=== PATIENT | female | born 1945 | race Caucasian/White ===

== ENCOUNTER 2022-05-21 10:46 | Outpatient (CLI) | payer MEDICARE, SELFPAY ==
--- OUTSIDE RECORDS SUMMARY | 2022-05-21 07:52 | XMS_ITS | Encounter Summary ---
:[address] [facility] Address [address] [place] [address] Care Team Providers Name Role Phone Unavailable Primary Care Provider Unavailable Encounter Details Date Type Department Care Team Description 02/19/2016 Hospital Encounter HX NO MAPPING Social History Tobacco Use Types Packs/Day Years Used Date Smoking Tobacco: Never Assessed Sex Assigned at Date Recorded Not on file documented as of this encounter Medications at Time of Discharge Medication Sig Dispensed Refills Start Date End Date co-enzyme Q-10 (CO Q-10) Take 1 capsule by 0 12/2015 100 mg capsule mouth daily. lisinopril Take 1 tablet by mouth 0 01/01/2016 (PRINIVIL,ZESTRIL) 10 mg daily. tablet loratadine 10 mg capsule Take 1 capsule by 0 01/25 mouth as needed. magnesium 250 mg tablet Take 1 tablet by mouth 0 01/01/2016 daily. metFORMIN (GLUCOPHAGE) Take 1 tablet by mouth 0 0 01/01/2016 1,000 mg tablet 2 (two) times a day. omega-3 fatty acids/fish Take 1,200 mg by mouth 0 01/01/2016 oil (OMEGA 3 FISH OIL daily. ORAL) documented as of this encounter Plan of Treatment Not on filedocumented as of this encounter Visit Diagnoses Not on filedocumented in this encounter
--- OUTSIDE RECORDS SUMMARY | 2022-05-21 07:52 | XMS_ITS | Encounter Summary ---
:1945 Author Organization [facility] Address [address] [place] [address] Care Team Providers Name Role Phone Unavailable Primary Care Provider Unavailable Encounter Details Date Type Department Care Team Description 03/24/2018 Ancillary Procedure Department of Dermatology Social History Tobacco Use Types Packs/Day Years Used Date Smoking Tobacco: Never Smokeless Tobacco: Never Sex Assigned at Date Recorded Not on file documented as of this encounter Plan of Treatment Not on filedocumented as of this encounter Procedures Procedure Name Priority Date/Time Associated Comments Diagnosis DERMATOLOGY IMAGE Routine 03/24/2018 4:44 PM Resu lts for this EXAM CDT procedure are i n the results section. documented in this encounter Results DERMATOLOGY IMAGE EXAM (03/24/2018 4:44 PM CDT) Specimen (Source) Anatomical Collection Method Collection Time Re ceived Time Location / / Volume Laterality 03/24/2018 4:42 PM CDT Narrative [facility] - 03/24/2018 4:44 PM CDT This order has been created and auto-finalized to support the import of images acquired without order. The clini saji documentation to support these images can be found on the encounter mona t produced images. Provider Not In System IMG NON RAD IMAGING PROCEDUR ES Performing Organization Address City/State/ZIP Code Phon e Number [facility] NA documented in this encounter Visit Diagnoses Not on filedocumented in this encounter
--- OUTSIDE RECORDS SUMMARY | 2022-05-21 07:52 | XMS_ITS | Encounter Summary ---
:1945 Author Organization [facility] Address [address] [place] [address] Care Team Providers Name Role Phone Unavailable Primary Care Provider Unavailable Encounter Details Date Type Department Care Team Description 12/11/2020 Clinical Communication Department of Corey Sal, Dermatology in [place], [place] [address] [facility] [address] [place] [phone] [phone] Social History Tobacco Use Types Packs/Day Years Used Date Smoking Tobacco: Never Smokeless Tobacco: Never Sex Assigned at Date Recorded Not on file documented as of this encounter Miscellaneous Notes Telephone Encounter - Edilberto Quintero LLaurenP.N. - 12/13/2020 9:39 AM CDT Spoke to patient on phone and confirmed 12/19 appointment at 11:15 Telephone Encounter - Helen Horne - 12/11/2020 3:21 PM CDT SYMPTOM ADVICE What phone number can I reach you at? [phone] New Symptom and duration of symptom: Eczema and Psoriasis Additional information: Pt called, stated her eczema and psoriasis is getting worse on her leg. She is requesting to see Dr Sal sooner than 03/26/21. Pt declined first available appt. Please check and call her back. Routing: - transfer to hand bunch maker line if new or worsening symptoms - team swimming pool attendant for continued symptoms - VERIFICATION ENGINEER pool for chronic issue or medication refill/question documented in this encounter Plan of Treatment Not on filedocumented as of this encounter Visit Diagnoses Not on filedocumented in this encounter
--- OUTSIDE RECORDS SUMMARY | 2022-05-21 07:52 | XMS_ITS | Encounter Summary ---
:1945 Author Organization [facility] Address [address] [place] [id number] Care Team Providers Name Role Phone Unavailable Primary Care Provider Unavailable Encounter Details Date Type Department Care Team Description 12/19/2020 Ancillary Procedure Department of Dermatology Social History Tobacco Use Types Packs/Day Years Used Date Smoking Tobacco: Never Smokeless Tobacco: Never Sex Assigned at Date Recorded Not on file documented as of this encounter Plan of Treatment Not on filedocumented as of this encounter Procedures Procedure Name Priority Date/Time Associated Comments Diagnosis DERMATOLOGY IMAGE Routine 12/19/2020 11:30 Result s for this EXAM AM CDT procedure are i n the results section. documented in this encounter Results Legs-Dermatology Image Exam (12/19/2020 11:30 AM CDT) Specimen (Source) Anatomical Collection Method Collection Time Re ceived Time Location / / Volume Laterality 12/19/2020 11:30 AM CDT Narrative [facility] - 12/19/2020 11:34 AM CDT This order has been created and [...]
--- OUTSIDE RECORDS SUMMARY | 2022-05-21 07:52 | XMS_ITS | Encounter Summary ---
:1945 Author Organization [facility] Address [address] [place] [address] Care Team Providers Name Role Phone Unavailable Primary Care Provider Unavailable Encounter Details Date Type Department Care Team Description 04/29/2016 Hospital Encounter HX NO MAPPING Social History Tobacco Use Types Packs/Day Years Used Date Smoking Tobacco: Never Assessed Sex Assigned at Date Recorded Not on file documented as of this encounter Last Filed Vital Signs Vital Sign Reading Time Taken Comments Blood Pressure 147/83 04/29/2016 4:30 PM CDT Pulse 90 04/29/2016 4:30 PM CDT Temperature - - Respiratory Rate 18 04/29/2016 4:30 PM CDT Oxygen Saturation - - Inhaled Oxygen Concentration - - Weight 89.5 kg (197 lb 5 oz) 04/29/2016 6:06 AM CDT Height 168 cm (5' 6.14) 04/29/2016 6:06 AM CDT Body Mass Index 31.71 04/29/2016 6:06 AM CDT documented in this encounter Medications at Time of Discharge Medication Sig Dispensed Refills Start Date End Date co-enzyme Q-10 (CO Q-10) Take 1 capsule by 0 06/0 12/2015 100 mg capsule mouth daily. lisinopril Take 1 tablet by mouth 0 01/01/2016 (PRINIVIL,ZESTRIL) 10 mg daily. tablet loratadine 10 mg capsule Take 1 capsule by 0 1 11/2015 mouth as needed. magnesium 250 mg tablet [...]
--- OUTSIDE RECORDS SUMMARY | 2022-05-21 07:52 | XMS_ITS | Clinical Summary ---
:1945 Author Organization [facility] Address [address] [place] [address] Care Team Providers Name Role Phone Unavailable Primary Care Provider Unavailable Source Comments Patient records contain information from all sites at [facility]. For routine questions regarding patient records, call [phone] during business hours, M-F 8:00 AM - 5:00 PM Central Time. Record requests for emergency care only can be directed to [phone] at any time.[facility] Allergies Active Allergy Reactions Severity Noted Date Comments Bacitracin Rash 09/02/2018 Codeine Hallucinations 01/01/2016 Hydrocodone-Acetaminop Nausea Only 01/01/2016 hen Iodinated Contrast Hives 01/02/2016 IV Dye Media Meperidine Nausea Only 01/01/2016 Methadone Nausea Only 01/01/2016 Dizziness Miconazole Nitrate Hives 01/01/2016 Morphine Nausea Only 01/01/2016 Oxycodone-Acetaminophe Nausea Only 01/01/2016 n Pollen Extracts Other (see comments) 01/01/2016 Enoc estion, sneezing and coughing Sulfa (Sulfonamide Nausea And Vomiting 01/01/2016 Antibiotics) Tree And Shrub Pollen Other (see comments) 01/02/2016 [place] trees-congestio n, sneezing and co ughing Medications Medication Sig Dispensed Refills Start Date End Date Status co-enzyme Q-10 (CO Take 1 capsule by 0 01/01/2016 Active Q-10) 100 mg capsule mouth daily. lisinopril Take 1 tablet by 0 01/01/2016 A ctive (PRINIVIL,ZESTRIL) 10 mouth daily. mg tablet loratadine 10 mg Take 1 capsule by 0 02/09/2016 Active capsule mouth as needed. magnesium 250 mg tablet Take 1 tablet by 0 6 Active mouth daily. metFORMIN (GLUCOPHAGE) Take 1 tablet by 0 01/01/2016 Active 1,000 mg tablet mouth 2 (two) times a day. omega-3 fatty Take 1,200 mg by 0 01/01/2016 Active acids/fish oil (OMEGA 3 mouth daily. FISH OIL ORAL) cholecalciferol Take 2,000 Units 0 Active (VITAMIN D3) 2,000 Unit by mouth daily. tablet atorvastatin (LIPITOR) Take 20 mg by 0 Active 20 mg tablet mouth daily. glimepiride (AMARYL) 1 Take 2 mg by 0 Active mg tablet mouth daily with breakfast. mometasone (ELOCON) 0.1 Apply sparingly 45 g 0 02/05/2021 Active % ointment to rash on legs once daily for for 1 week, stop for 1 week, then resume for 1 more week Additional Information Patient taking differently: Apply sparingly to rash on legs once daily for for 1 week, stop for 1 week, then resume for 1 more week when needed, Reported on 02/19/2021 Active Problems Problem Noted Date Keratoderma Acquired 06/02/2018 Hyperlipidemia 04/18/2016 Social History Tobacco Use Types Packs/Day Years Used Date Smoking Tobacco: Never Smokeless Tobacco: Never Sex Assigned at Date Recorded Not on file Last Filed Vital Signs Vital Sign Reading Time Taken Comments Blood Pressure 147/83 04/29/2016 4:30 PM CDT Pulse 90 04/29/2016 4:30 PM CDT Temperature - - Respiratory Rate 18 04/29/2016 4:30 PM CDT Oxygen Saturation - - Inhaled Oxygen - - Concentration Weight 90 kg (198 lb 6.6 04/29/2016 7:59 AM Vital si gn result oz) CDT from CD. Height 169.3 cm (5' 6.65) 04/29/2016 7:59 AM Vital sign result CDT from [facility]. Body Mass Index 31.4 04/29/2016 7:59 AM CDT Plan of Treatment Health Maintenance Due Date Last Done Comments Bone Density Scan (Osteoporosis 1945 Screen) CT Colonography 1945 Cologuard 1945 FIT 1945 Hepatitis C Screening 1945 DTaP,Tdap,and Td Vaccines (1 - 04/09/2012 04/08/2012, 04/08, Tdap) 02/14/2003 Mammogram 05/29/2016 05/29/2015 (Performed elsewhere) Creatinine Level 04/18/2017 04/18/2016 Potassium Level 04/18/2017 04/18/2016 Sodium Level 04/18/2017 04/18/2016 Colonoscopy 07/28/2017 07/28/2007 (Performed elsewhere) Colorectal Cancer Screening 07/28/2017 Fasting Glucose for Diabetes 04/29/2019 04/29/2016, 016, Screening 04/29/2016, Additional history exists Lipid (Cholesterol) Screening 04/18/2021 04/18/2016, 2014 (Performed elsewhere) Depression Screening (Annual 07/28/2021 PHQ-2) Fall Risk Screen (Annual) 07/28/2021 Pneumococcal vaccine (65+ years) Completed 05/23/2017, 01/2017, 09/13/2003 Zoster Vaccines Completed 07/13/2020, 05/01/2020, 06/29/2014 COVID-19 Vaccine Completed 04/19/2022, 10/29/2021, 04/24/2021, Additional history exists Influenza Vaccine Completed 04/19/2022, 05/03/2021, 05/12/2019, Additional history exists Medical Devices Implanted Type Area Columnist/Commentator Device Shelf Model / Identifier Expiration Serial / Date Lot Conversions - Default Historical Implant Device Hardware e.g. Neck Implanted: 01/01/2016 (Quantity not on file) pins/screws/r ods Description: Body Location - Neck Mid. D evice Status Text - Hardware. Insurance Payer Benefit Plan / Subscriber ID Effective Phone Address T ype Group Dates MEDICARE MEDICARE A AND [id number] 2012-Prese [phone] [place] [address] MEDICA MEDICA PRIME [id number] 2017-Prese [phone] [address] [employer] [address] [place] [address] Advance Directives For more information, please contact: [phone] Documents on File Type Date Recorded Patient Immigration Case Manager Explanati on Advance Directives 01/01/2016 12:00 AM Legacy docu ment. See document viewer.
--- OUTSIDE RECORDS SUMMARY | 2022-05-21 07:52 | XMS_ITS | Encounter Summary ---
:1945 Author Organization [facility] Address [address] [place] [address] Care Team Providers Name Role Phone Unavailable Primary Care Provider Unavailable Reason for Referral Outpatient (Routine) - Closed Specialty Diagnoses / Procedures Referred By Contact Refer red To Contact Dermatology Corey Sal M.D . [facility] Region [address] [place], [place] [address] Referral ID Status Reason Start Date Expiration Date Visits Requ ested Visits Authorized [id number] Closed 03/24/2018 03/24/2019 1 1 Scheduling Instructions Recheck skin rash on FridayJune 02 for 30 min appointment 3:00-330pm Reason for Visit Reason Comments Skin Problem 3 month follow up for Kerato derma and stasis dermatitis Appointment Request (Routine) - Closed Specialty Diagnoses / Procedures Referred By Contact Refer red To Contact Dermatology Referral ID Status Reason Start Date Expiration Date Visits Requ ested Visits Authorized [id number] Closed 12/16/2017 06/14/2018 1 Encounter Details Date Type Department Care Team Description 03/24/2018 Office Visit Department of Corey Sal, Keratoderm a Acquired (Primary Dx); Dermatology in [place] Stasis Dermatitis Lower Extremity Bilate [place], [place] [address] [phone] [phone] Social History Tobacco Use Types Packs/Day Years Used Date Smoking Tobacco: Never Smokeless Tobacco: Never Sex Assigned at Date Recorded Not on file documented as of this encounter Progress Notes Corey Sal M.D. - 03/24/2018 3:30 PM CDT CHIEF COMPLAINT Recheck keratoderma involving her feet HISTORY OF THE PRESENT ILLNESS Annie Carter is a pleasant 73 y.o. female who follows up for her keratoderma involving her feetand dermatitis involving her legs. The patient used the mometasone for her leg dermatitis as instructed with two weeks on, one week off and two weeks on. She stopped using the mometasone completely about one month ago. The bottoms of her feet appear to be improved with the Retin-A however, the skin onher toes is starting the crack and split. She stopped using the Retin-a about two to three weeks agobecause when the Retin-A would enter the cracks in the skin it would burn so she stopped using it. She tried using urea again last week but stopped using it because it stung when she applied it and it entered the fissures in her skin. She has been using butter balm for the last few weeks because it isthe only thing she has found that doesn't burn or sting when she applies it. The soles of her feet are much better currently. She is able to walk without cracking of the skin and bleeding. Her toes however, have worsened with increased dry skin and formation of fissures. Previous biopsy from a psoriasiform dermatitic rash on her thighs favored dermatitis but PRP could not be excluded however clinically it did not look like PRP. The patient had an annual physical exam in January 2018 at our request as acquired keratoderma can sometimes be associated with aerodigestive malignancies.. Her primary care glo abrams did not recommend any further imaging at that time. The patient denies any dysphagia, fever, night sweats, weight loss or other complaints. PAST MEDICAL HISTORY Keratoderma involving feet PHYSICAL EXAM General: Awake, alert, in no acute distress, and with appropriate affect. Skin: Examination of the left plantar foot reveals thickened keratoderma involving the tips of the toes and heel area, and distal foot near the big toe but overall it appears better compared to previous. Examination of the right plantar foot reveals thickened keratoderma involving all five toes with afissure involving the right big toe and then some keratoderma involving the heel and distal foot near the big toe but overall improved as well compared to previous. No vesicles or pustules noted on exam. Examination of the legs reveals dermatitic rash left jasso greater than right jasso with some dilated blood vessels and blanchable erythema on the left anterior jasso. IMPRESSION AND PLAN #1 Feet: Acquired keratoderma Overall improved compared to last winter/spring but slight worsening on the toes since last visit and since stopping the urea. For the left foot, will try restarting the urea once a day just to the thick areas on the heels and the toes if tolerated can use the Dovonex once a day as well. If it is not tolerated, we will use Dovonex ointment twice a day. On the right foot we will try to urea once a dayto the thickened area on the heel and toes, avoiding the fissure, as tolerated. If tolerated, she should add Dovonex once a day. If it is not tolerated, we will use Dovonex ointment twice a day. To theright big toe fissure she may use Krazy glue. Dovonex ointment was reordered today to be used as need ed above. Recommended Vaniply at night. #2 Legs: Stasis dermatitis Leg rash looks like stasis dermatitis. Prior biopsy from thigh showed dermatitis but could not rule out PRP however clinically this does not fit. Will switch to mometasone ointment once a day two weekson, one week off, two weeks on then stop. I reviewed proper application with the patient. Return in 2 months for a recheck. PATIENT EDUCATION Ready to learn. No apparent learning barriers were identified. Learning preferences include listening. Explained diagnosis and treatment plan; patient/guardian of patient expressed understanding of thecontent. By signing my name below, I, Favio Quevedo, attest that this documentation has been prepared underthe direction and in the presence of Corey Sal M.D.. Electronically Signed: fabiola Acosta. 03/24/2018. 4:17 PM . Corey Harvey M.D., personally performed the services described in this documentation. All medical record entries made by the scribe were at my direction and in my presence. I have reviewed the chart and discharge instructions (if applicable) and agree that the record reflects my personal performance and is accurate and complete. Corey Sal M.D. . 03/24/2018. 4:59 PM. documented in this encounter Plan of Treatment Scheduled Referrals Name Type Priority Associated Order Schedule Diagnoses Dermatology office Outpatient Referral Routine Ex pected: visit (clinic) 06/02/2018 (Approximate), Expires: 03/24/2021 documented as of this encounter Visit Diagnoses Diagnosis Keratoderma Acquired - Primary Stasis Dermatitis Lower Extremity Bilate ral documented in this encounter
--- OUTSIDE RECORDS SUMMARY | 2022-05-21 07:52 | XMS_ITS | Encounter Summary ---
:1945 Author Organization [facility] Address [address] [place] [address] Care Team Providers Name Role Phone Unavailable Primary Care Provider Unavailable Encounter Details Date Type Department Care Team Description 04/17/2016 Hospital Encounter HX NO MAPPING Social History [...]
--- OUTSIDE RECORDS SUMMARY | 2022-05-21 07:52 | XMS_ITS | Encounter Summary ---
:1945 Author Organization [facility] Address [address] [place] [address] Care Team Providers Name Role Phone Unavailable Primary Care Provider Unavailable Reason for Visit Reason Comments Med Refill Encounter Details Date Type Department Care Team Description 04/01/2018 Refill Department of Dermatology in Corey Kirby M.D. Med Refill [facility] [place] [address] [address] [place], [place] [address] [phone] Social History Tobacco Use Types Packs/Day Years Used Date Smoking Tobacco: Never Smokeless Tobacco: Never Sex Assigned at Date Recorded Not on file documented as of this encounter Miscellaneous Notes Telephone Encounter - Asuncion Valencia R.N. - 04/02/2018 2:32 PM CDT Portal message sent to patient alerting her that a request for Prior Authorization on the MometasoneOintment has been sent to the Prior Authorization Department. Telephone Encounter - Malia Mcgrath L.P.N. - 04/02/2018 11:35 AM CDT I submitted a PA request. Telephone Encounter - Neha Chowdhury - 04/01/2018 11:37 AM CDT Annie is checking the status of her Prior Authorization that is needed regarding the Ointment Dr. Sal ordered for her feet. This Rx can be sent to [facility] in [place]. We may contact Annie at [phone] and she states we may leave a detailed message, should we receive her voicemail. documented in this encounter Plan of Treatment Not on filedocumented as of this encounter Visit Diagnoses Not on filedocumented in this encounter
--- OUTSIDE RECORDS SUMMARY | 2022-05-21 07:52 | XMS_ITS | Encounter Summary ---
:1945 Author Organization [facility] Address [address] [place] [address] Care Team Providers Name Role Phone Unavailable Primary Care Provider Unavailable Reason for Referral Outpatient (Routine) - Closed Specialty Diagnoses / Procedures Referred By Contact Refer red To Contact Dermatology Corey Sal M.D . [facility] [address] [place] [phone] Referral ID Status Reason Start Date Expiration Date Visits Requ ested Visits Authorized [id number] Closed 02/19/2021 02/19/2022 1 1 Scheduling Instructions Recheck stasis dermatitis, hyperkeratosi s of feet, and skin cancer screening exam in 3 months Reason for Visit Reason Comments Follow-up rash on legs Outpatient (Routine) - Closed Specialty Diagnoses / Procedures Referred By Contact Refer brian To Contact Dermatology Corey Sal M.D . [facility] Region [address] [place] [phone] Referral ID Status Reason Start Date Expiration Date Visits Requ ested Visits Authorized [id number] Closed 12/19/2020 12/19/2021 1 1 Encounter Details Date Type Department Care Team Description 02/19/2021 Office Visit Department of Corey Sal Dermat itis Lower Extremity Bilateral (Primary Dx); Dermatology in [place] Nam M.D. [place] [id number] Social History Tobacco Use Types Packs/Day Years Used Date Smoking Tobacco: Never Smokeless Tobacco: Never Sex Assigned at Date Recorded Not on file documented as of this encounter Progress Notes Corey Sal M.D. - 02/19/2021 2:30 PM CDT SUBJECTIVE CHIEF COMPLAINT / REASON FOR VISIT Recheck hyperkeratosis Recheck stasis dermatitis HISTORY OF PRESENT ILLNESS Annei Carter is a pleasant 75 y.o. female who follows up for recheck hyperkeratosis involving the plantar feet and a recheck of stasis dermatitis involving the lower legs bilaterally. The patient was last seen by me in Dermatology clinic on 12/19/20 and at that time we felt her hyperkeratosis was m ild and the rash involving the lower legs was compatible with stasis dermatitis. 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 During her most recent visit on 06/02/18, the keratoderma had markedly improved. I recommended restarting urea 20% cream one to two times daily and continuing Vaniply ointment twice daily.??During her follow up visit on 10/05/18, she reported??that the keratoderma has continued to significantly improve and was almost entirely resolved with application of the urea cream twice daily. She denied??irritation or pain with walking. I recommended decreasing the urea??20% cream??from twice??to once daily to the plantar feet and toes. She also continued??the Vaniply ointment twice daily. Today,??she reports that the keratoderma has resolved. She decreased the urea to once daily as directed, then stopped it entirely about one month ago and has not needed to restart.? In addition, the patient has a history of stasis dermatitis involving her lower legs??previously treated with mometasone ointment. During the last visit??on 10/05/18, the patient had concern for a mild flare involving the left distal lower leg.??I recommended resuming mometasone 0.1% ointment once daily to both entire legs 3 days per week for 1 week.??After this, I instructed her to apply the mometasone??to the eczematous plaque involving the left distal leg every other day for one??further week??week.??Today, the patient reports that she applied the mometasone as directed during this flare until itresolved. However, she does have concern for a new flare of itching and mild erythema involving her lower legs after a recent trip to [place]. She has been applying CeraVe moisturizer at least twice daily, which helps relieve the itching.? During her most recent visit on 02/23/2019, the keratoderma involving the feet had markedly improved and we asked her to only use the 20% urea cream every other day as needed and apply Vaniply ointment twice daily. For the stasis dermatitis involving the legs, that had also improved and we asked her touse Sarna lotion twice daily and for flares of dermatitis she would resume mometasone 0.1% ointment once daily up to a few days at a time. ? On her visit on 12/19/20The keratoderma has been doing well on the heels and she has not required Urea and has just been using Vaniply ointment and Eucerin and uses one or the other twice daily. With regards to the dermatitis involving ther legs she had a recent flare which started 2-3 months ago with peeling skin, a lot of itching. She denies blistering. Prior to the flare there were no identifiable aggravating factors. Treatments have consisted of Vaniply ointment twice daily, Eucerin when itchy and she did not treat with mometasone ointment as she ran out of the ointment and has not used any other steroid creams. More recently she was seen by the dentist for a potential root canal and she was given Clindamycin 300 mg three times daily for two weeks and that was started on 12/11/2020 about one week ago and she feels the rash has improved with the Clindamycin. She feels that her legs are less red and inflamed since starting the antibiotic. She denies any fever or chills. She denies any blisters or erosions in the mouth. She denies any new skin contactants or any new medications other than the Clindamycin. ?? On her most recent visit on 12/19/20 in regards to her hyperkeratosis, we felt it was mild at that time. I explained she may use the Urea 20% cream applied once daily to the thickened areas for one week at a time. Stop for 3-4 days. Resume again for another week. Apply Vaniply twice daily. In regards to her stasis dermatitis, I asked her restart the mometasone ointment once daily for one week. Stop for one week then resume again for 1 week and repeat for a second cycle. I asked her to stop after the second 1 week of treatment with the mometasone ointment and just simply use moisturizer t hereafter. I explained she may continue with Clindamycin antibiotics as prescribed by her dentist. We did discuss the potential of referral to [facility] for patch testing vs potential biopsy but we deferred these treatments at that time especially the biopsy as I would be worried about a poor healing wound in the area. I discussed we may consider referral for patch testing if she gonzalez not improved. Today, in regards to the hyperkeratosis has significantly improved with the application of the urea 20% twice daily. She also feels that the stasis dermatitis involving her lower legs bilaterally has also markedly improved with the mometasone ointment. She has completed two cycles of mometasone ointment daily for 2 weeks followed by 1 week off and the last treatment was approximately 4 weeks ago and has not had any flares since. MEDICAL HISTORY Keratoderma involving feet Stasis dermatitis involving legs OBJECTIVE PHYSICAL EXAMINATION General: Awake, alert, in no acute distress, and with appropriate affect. Skin: Limited skin exam done today. Examination of the right lower leg reveals faint erythematous macules that are markedly improved. Examination of the left lower leg reveals some blanchable erythema and post inflammatory changes andstasis changes but overall markedly improved with the area of involvement being much thinner and less inflamed. Examination of the toes reveals some mild hyperkeratosis involving the left fifth toe. Examination of the right foot reveals some hyperkeratosis involving the first four toes. Webspaces are normal. ASSESSMENT / PLAN #1 Plantar feet: Hyperkeratosis, improving I have asked her to continue with 20% Urea cream applied twice daily. Apply Vaniply twice daily at another time than the Urea cream.Follow up in 4 months for a recheck and a full skin check. #2 Lower legs bilaterally: Stasis dermatitis, markedly improved I have asked her to stop mometasone ointment at this time. If reoccurs, she may apply once daily for one week at at time. Stop for one week, resume again as needed. She may apply Vaniply twice daily to the legs as needed. Follow up in 4 months for a recheck and a full skin check. PATIENT EDUCATION: Ready to learn. No apparent learning barriers were identified. Learning preferences include listening. Explained diagnosis and treatment plan; patient/guardian of patient expressed understanding of thecontent. By signing my name below, I, Lisa Westfall, attest that this documentation has been prepared underthe direction and in the presence of Corey Sal M.D. Electronically Signed: fabiola Kendrick. I, Corey Sal M.D., personally performed the services described in this documentation. All medical record entries made by the scribe were at my direction and in my presence. I have reviewed the chart and discharge instructions (if applicable) and agree that the record reflects my personal performance and is accurate and complete. Corey Sal M.D. documented in this encounter Plan of Treatment Scheduled Referrals Name Type Priority Associated Order Schedule Diagnoses Dermatology office Outpatient Referral Routine Ex pected: visit (clinic) 05/22/2021 (Approximate), Expires: 02/20/2024 documented as of this encounter Visit Diagnoses Diagnosis Stasis Dermatitis Lower Extremity Bilate ral - Primary Hyperkeratosis documented in this encounter
--- OUTSIDE RECORDS SUMMARY | 2022-05-21 07:52 | XMS_ITS | Encounter Summary ---
:1945 Author Organization [facility] Address [address] [place] [address] Care Team Providers Name Role Phone Unavailable [...] Associated Comments Diagnosis DERMATOLOGY IMAGE Routine 03/24/2018 4:45 PM Resu lts for this EXAM CDT procedure are i n the results section. documented in this encounter Results DERMATOLOGY IMAGE EXAM (03/24/2018 4:45 PM CDT) Specimen (Source) Anatomical Collection Method Collection Time Re ceived Time Location / / Volume Laterality 03/24/2018 4:43 PM CDT Narrative [facility] - 03/24/2018 4:45 PM CDT This order has been created [...]
--- OUTSIDE RECORDS SUMMARY | 2022-05-21 07:52 | XMS_ITS | Encounter Summary ---
:[address] [facility] Address [address] [place] [address] Care Team Providers Name Role Phone Unavailable Primary Care Provider Unavailable Reason for Referral Outpatient (Routine) - Closed Specialty Diagnoses / Procedures Referred By Contact Refer red To Contact Dermatology Corey Sal M.D . [facility] Region [address] [place] [phone] Referral ID Status Reason Start Date Expiration Date Visits Requ ested Visits Authorized [id number] Closed 10/05/2018 10/05/2019 1 1 Scheduling Instructions Recheck carotid derma involving feet , s tasis dermatitis, and skin cancer screening exam in 3-4 months. 30 min appointment Reason for Visit Reason Comments Follow-up Appointment Request (Routine) - Closed Specialty Diagnoses / Procedures Referred By Contact Refer red To Contact Dermatology Referral ID Status Reason Start Date Expiration Date Visits Requ ested Visits Authorized [id number] Closed 06/02/2018 06/02/2019 1 Encounter Details Date Type Department Care Team Description 10/05/2018 Office Visit Department of Corey Sal, Keratoderm a Acquired (Primary Dx); Dermatology in [place] Stasis Dermatitis Lower Extremity Bilate [place], [place] [address] [phone] Social History Tobacco Use Types Packs/Day Years Used Date Smoking Tobacco: Never Smokeless Tobacco: Never Sex Assigned at Date Recorded Not on file documented as of this encounter Progress Notes Corey Sal M.D. - 10/05/2018 2:00 PM CDT CHIEF COMPLAINT Recheck keratoderma involving feet Recheck of stasis dermatitis involving lower legs HISTORY OF THE PRESENT ILLNESS Annie Carter is a pleasant 73 y.o. female who follows up for keratoderma involving her feet andstasis dermatitis involving her legs. The patient has a history of severe acquired keratoderma sinceJuly 2017 which we have been closely following here and previously in [place]. During her most recent visit on 06/02/18, the keratoderma had markedly improved. I recommended restarting urea 20% cream one to two times daily and continuing Vaniply ointment twice daily. Today, she reports that the keratoderma has continued to significantly improve and is almost entirely resolved with application of the urea cream twice daily. She denies irritation or pain with walking. In addition, the patient has a history of stasis dermatitis involving her lower legs. During the last visit I had recommended resuming mometasone 0.1% ointment once daily for two weeks, stopping for one week, then resuming for two more weeks for flares. The patient applied the mometasone as directed during a flare and it resolved. She has not applied the mometasone for a few months, but notes that a mild flare has been developing recently. PAST MEDICAL HISTORY Keratoderma involving feet Stasis dermatitis involving legs PHYSICAL EXAM General: Awake, alert, in no acute distress, and with appropriate affect. Skin: Examination of the plantar feet reveals mild thickening involving the left lateral sole of thefoot extending to the heel, as well as similar changes to the right lateral foot and heel. There is mild thickening of the plantar aspects of toes. Examination of the right lower leg reveals minimal dermatitis and dry skin. Examination of the left distal lower leg reveals an eczematous patch with mildscaling and some blanchable erythema. IMPRESSION AND PLAN #1 Feet: Acquired keratoderma, markedly improved The patient's keratoderma has continued to significantly improve and it has improved. I recommended decreasing the urea 20% cream from twice to once daily to the plantar feet and toes. She will also continue the Vaniply ointment twice daily. Follow up in 3-4 months or earlier if needed. #2 Legs: Stasis dermatitis The patient's stasis dermatitis has also improved, although there is a focal area involving the leftdistal lower leg. I recommended applying mometasone 0.1% ointment to both entire legs once daily forfor one week three days per week. After this, she will continue to apply the mometasone only to the eczematous plaque involving the left distal leg every other day for one further week week. The patient will continue to apply moisturizer daily. Follow up in 3-4 months or earlier if needed. PATIENT EDUCATION Ready to learn. No apparent learning barriers were identified. Learning preferences include listening. Explained diagnosis and treatment plan; patient/guardian of patient expressed understanding of thecontent. By signing my name below, I, Adriana Cutler, attest that this documentation has been prepared under thedirection and in the presence of Corey Sal M.D. Electronically Signed: fabiola Doherty. 10/05/2018. 2:26 PM . ICorey M.D., personally performed the services described in this documentation. All medical record entries made by the scribe were at my direction and in my presence. I have reviewed the chart and discharge instructions (if applicable) and agree that the record reflects my personal performance and is accurate and complete. Corey Sal M.D. . 10/05/2018. 3:30 PM. documented in this encounter Plan of Treatment Scheduled Referrals Name Type Priority Associated Order Schedule Diagnoses Dermatology office Outpatient Referral Routine Ex pected: visit (clinic) 10/05/2018 (Approximate), Expires: 10/05/2021 documented as of this encounter Visit Diagnoses Diagnosis Keratoderma Acquired - Primary Stasis Dermatitis Lower Extremity Bilate ral documented in this encounter
--- OUTSIDE RECORDS SUMMARY | 2022-05-21 07:52 | XMS_ITS | Encounter Summary ---
:1945 Author Organization [facility] Address [address] [place] [address] Care Team Providers Name Role Phone Unavailable Primary Care Provider Unavailable Reason for Visit Reason Comments Med Refill Encounter Details Date Type Department Care Team Description 02/02/2021 Refill Department of Dermatology in Corey Kirby M.D. Med Refill [facility] [address] [phone] [place], [place] [address] [phone] Social History Tobacco Use Types Packs/Day Years Used Date Smoking Tobacco: Never Smokeless Tobacco: Never Sex Assigned at Date Recorded Not on file documented as of this encounter Miscellaneous Notes Telephone Encounter - Lynne Gabriel - 02/02/2021 12:[address] Sal is away. If appropriate, please forward to covering physician. documented in this encounter Plan of Treatment Not on filedocumented as of this encounter Visit Diagnoses Not on filedocumented in this encounter
--- OUTSIDE RECORDS SUMMARY | 2022-05-21 07:52 | XMS_ITS | Encounter Summary ---
:1945 Author Organization [facility] Address [address] [place] [address] Care Team Providers Name Role Phone Unavailable [...] Associated Comments Diagnosis DERMATOLOGY IMAGE Routine 12/19/2020 11:34 Result s for this EXAM AM CDT procedure are i n the results section. documented in this encounter Results Feet 529-Dermatology Image Exam (12/19/2020 11:34 AM CDT) Specimen (Source) Anatomical Collection Method [...]
--- OUTSIDE RECORDS SUMMARY | 2022-05-21 07:52 | XMS_ITS | Encounter Summary ---
:1945 Author Organization [facility] Address [address] [place] [address] Care Team Providers Name Role Phone Unavailable Primary Care Provider Unavailable Encounter Details Date Type Department Care Team Description 12/16/2017 Ancillary Procedure Department of Dermatology Social History Tobacco Use Types Packs/Day Years Used Date Smoking Tobacco: Never Smokeless Tobacco: Never Sex Assigned at Date Recorded Not on file documented as of this encounter Plan of Treatment Not on filedocumented as of this encounter Procedures Procedure Name Priority Date/Time Associated Comments Diagnosis DERMATOLOGY IMAGE Routine 12/16/2017 3:05 PM Resu lts for this EXAM CDT procedure are i n the results section. documented in this encounter Results DERMATOLOGY IMAGE EXAM (12/16/2017 3:05 PM CDT) Specimen (Source) Anatomical Collection Method Collection Time Re ceived Time Location / / Volume Laterality 12/16/2017 3:05 PM CDT Narrative [facility] - 12/16/2017 3:07 PM CDT This order has been created [...]
--- OUTSIDE RECORDS SUMMARY | 2022-05-21 07:52 | XMS_ITS | Encounter Summary ---
:1945 Author Organization [facility] Address [address] [place] [address] Care Team Providers Name Role Phone Unavailable Primary Care Provider Unavailable Reason for Visit Reason Comments Rash Outpatient (Routine) - Closed Specialty Diagnoses / Procedures Referred By Contact Refer red To Contact Dermatology Corey Sal M.D . [facility] Region [address] [place], [place] [phone] Referral ID Status Reason Start Date Expiration Date Visits Requ ested Visits Authorized [id number] Closed 03/24/2018 03/24/2019 1 1 Encounter Details Date Type Department Care Team Description 06/02/2018 Office Visit Department of Corey Sal Keratoderm a Acquired Dermatology in [facility] (Primary Dx) [place], [place] [address] [place] [phone] Social History Tobacco Use Types Packs/Day Years Used Date Smoking Tobacco: Never Smokeless Tobacco: Never Sex Assigned at Date Recorded Not on file documented as of this encounter Progress Notes Corey Sal M.D. - 06/02/2018 11:00 AM CST CHIEF COMPLAINT Recheck keratoderma involving her feet Recheck of stasis dermatitis involving lower legs HISTORY OF THE PRESENT ILLNESS Annie Carter is a pleasant 73 y.o. female who follows up for her keratoderma involving her feet. I last saw the patient for this on 03/24/18. During this visit, I recommended stopping urea 20% cream but starting Dovonex 0.005% ointment once daily to the thick areas on the heels and the toes and inc reasing to twice daily if tolerated. I also recommended use of Vaniply ointment at night. The patient has not been using Dovonex due to cost concerns. However, she has been using Vaniply ointment twicedaily to the feet. She is very pleased in feels that the keratoderma has improved. I also recommended that she apply Krazy glue to the fissure involving the right big toe. The patientdid not use Krazy glue; however, the fissure resolved spontaneously. During visit on 03/24/18, the patient additionally had concern for dermatitis involving her legs. I recommended using mometasone ointment once daily with two weeks on, one week off and two weeks on, andisreal has followed with this regimen. She stopped using the mometasone completely one month ago. She has also been using CeraVe moisturizing cream once daily. Patient reports significant improvement withuse of the mometasone as well as the CeraVe. Her itchiness has resolved. We had previously discussed that aerodigestive cancers, including those of the esophagus, can occur with keratoderma, but the patient has no systemic symptoms to support any associated malignancy. She has had a GME recently with her primary physician, Dr. Wiggins at [facility], who felt further evaluation was not needed. She is up to date on all malignancy screening. PAST MEDICAL HISTORY Keratoderma involving feet PHYSICAL EXAM General: Awake, alert, in no acute distress, and with appropriate affect. Skin: Examination of the shins reveals scattered, small, erythematous macules. Examination of the lower legs reveals stasis changes and post-inflammatory hyperpigmentation with minimal dermatitis with left lower leg worse than right. Examination of the left foot reveals only minimal keratoderma involving only the left 3rd and 5th plantar toes, as well as small focal areas involving the plantar foot. Examination of the right foot reveals more keratoderma involving several toes, the right medial heel,and the right medial forefoot. IMPRESSION AND PLAN #1 Feet: Acquired keratoderma, markedly improved For the thick areas on the plantar feet and toes, I have recommended restarting urea 20% cream one to two times daily, and tapering as the keratoderma improves. She will continue Vaniply ointment as previously prescribed twice daily. Follow up in 3-4 months or earlier if needed. #2 Legs: Statis dermatitis, markedly improved I recommend the patient continue CeraVe moisturizing cream daily. If the involved area becomes inflamed and itchy, I have instructed the patient to resume mometasone 0.1% ointment two weeks on, one week off, and two weeks on. Potential side effects with overuse of topical steroids discussed and she und erstands. PATIENT EDUCATION Ready to learn. No apparent learning barriers were identified. Learning preferences include listening. Explained diagnosis and treatment plan; patient/guardian of patient expressed understanding of thecontent. By signing my name below, I, Adriana Cutler, attest that this documentation has been prepared under the direction and in the presence of Corey Sal M.D.. Electronically Signed: fabiola Marti. 06/02/2018. 7:53 AM . ICorey M.D., personally performed the services described in this documentation. All medical record entries made by the scribe were at my direction and in my presence. I have reviewed the chart and discharge instructions (if applicable) and agree that the record reflects my personal performance and is accurate and complete. Corey Sal M.D. . 06/02/2018. 12:15 PM. [employer] documented in this encounter Plan of Treatment Not on filedocumented as of this encounter Visit Diagnoses Diagnosis Keratoderma Acquired - Primary documented in this encounter
--- OUTSIDE RECORDS SUMMARY | 2022-05-21 07:52 | XMS_ITS | Encounter Summary ---
:1945 Author Organization [facility] Address [address] [place] [address] Care Team Providers Name Role Phone Unavailable [...] Associated Comments Diagnosis DERMATOLOGY IMAGE Routine 12/16/2017 3:07 PM Resu lts for this EXAM CDT procedure are i n the results section. documented in this encounter Results DERMATOLOGY IMAGE EXAM (12/16/2017 3:07 PM CDT) Specimen (Source) Anatomical Collection Method [...]
--- OUTSIDE RECORDS SUMMARY | 2022-05-21 07:52 | XMS_ITS | Encounter Summary ---
:1945 Author Organization [facility] Address [address] [place] [address] Care Team Providers Name Role Phone Unavailable Primary Care Provider Unavailable Reason for Referral Outpatient (Routine) - Closed Specialty Diagnoses / Procedures Referred By Contact Refer red To Contact Dermatology Corey Sal M.D . [facility] [address] [place] [phone] Referral ID Status Reason Start Date Expiration Date Visits Requ ested Visits Authorized [id number] Closed 02/23/2019 02/23/2020 1 1 Scheduling Instructions Recheck dermatitis and skin cancer scree sena examination in 3 months Reason for Visit Reason Comments Skin Check Outpatient (Routine) - Closed Specialty Diagnoses / Procedures Referred By Contact Refer red To Contact Dermatology Corey Sal M.D . [facility] [address] [place] [address] [phone] Referral ID Status Reason Start Date Expiration Date Visits Requ ested Visits Authorized [id number] Closed 10/05/2018 10/05/2019 1 1 Encounter Details Date Type Department Care Team Description 02/23/2019 Office Visit Department of Corey Sal Keratoderm a Acquired (Primary Dx); Dermatology in [place] Stasis Dermatitis Lower Extremity Bilate [address] [phone] Social History Tobacco Use Types Packs/Day Years Used Date Smoking Tobacco: Never Smokeless Tobacco: Never Sex Assigned at Date Recorded Not on file documented as of this encounter Progress Notes Corey Sal M.D. - 02/23/2019 2:00 PM CDT SUBJECTIVE CHIEF COMPLAINT/REASON FOR VISIT Recheck keratoderma involving feet Recheck of stasis dermatitis involving lower legs HISTORY OF THE PRESENT ILLNESS Annie Carter is a pleasant 73 y.o. female who follows up for keratoderma involving her feet andstasis dermatitis involving her legs. The patient has a history of severe acquired keratoderma sinceJuly 2017 which we have been closely following here and previously in [place]. During her most recent visit on 06/02/18, the keratoderma had markedly improved. I recommended restarting urea 20% cream one to two times daily and continuing Vaniply ointment twice daily. During her follow up visit on 10/05/18, she reported that the keratoderma has continued to significantly improve and was almost entirely resolved with application of the urea cream twice daily. She denied irritation or pain with walking. I recommended decreasing the urea 20% cream from twice to once daily to the plantar feet and toes. She also continued the Vaniply ointment twice daily. Today, she reports that the keratoderma has resolved. She decreased the urea to once daily as directed, then stopped it entirely about one month ago and has not needed to restart. ?? In addition, the patient has a history of stasis dermatitis involving her lower legs previously treated with mometasone ointment. During the last visit on 10/05/18, the patient had concern for a mild flare involving the left distal lower leg. I recommended resuming mometasone 0.1% ointment once daily to both entire legs 3 days per week for 1 week. After this, I instructed her to apply the mometasone to the eczematous plaque involving the left distal leg every other day for one further week week. Today, the patient reports that she applied the mometasone as directed during this flare until it resolved. However, she does have concern for a new flare of itching and mild erythema involving her lower legs after a recent trip to [place]. She has been applying CeraVe moisturizer at least twice daily, which helps relieve the itching. MEDICAL HISTORY Keratoderma involving feet Stasis dermatitis involving legs OBJECTIVE PHYSICAL EXAMINATION General: Awake, alert, in no acute distress, and with appropriate affect. Skin: Examination of the left distal jasso anterior and lateral reveals chronic stasis changes with some seborrheic keratoses and verrucal keratoses involving the upper shins. No evidence for ulcers or vasculitis. Examination of the right medial plantar foot reveals mild dryness. Examination of the right big toe reveals xerosis and fissure and some thickening. ASSESSMENT/PLAN #1 Feet: Acquired keratoderma, markedly improved The patient's keratoderma has continued to significantly improve, and she has not needed to use the urea 20% cream for over one month. On clinical examination today, she has some xerosis, thickening, and fissuring involving the right big toe, so I recommended restarting the urea 20% cream once daily or once every other day as needed until resolved. She will also apply Vaniply ointment twice daily. Follow up for recheck and full skin cancer screening exam in 3 to 4 months. #2 Legs: Stasis dermatitis The patient's stasis dermatitis has also improved, although she does have a mild recent flare involving the lower legs, left greater than right. For itch relief, I recommended applying Sarna lotion twice daily. For flares of dermatitis and itching, she may resume the mometasone 0.1% ointment once daily for up to a few days at a time as needed. Discussed potential side effects with overuse of topical steroids including thinning of the skin and dilation of blood vessels and the patient understands. Follow up for recheck and full skin cancer screening exam in 3 to 4 months or earlier if needed. PATIENT EDUCATION: Ready to learn. No apparent learning barriers were identified. Learning preferences include listening. Explained diagnosis and treatment plan; patient/guardian of patient expressed understanding of thecontent. By signing my name below, Adriana Harvey, attest that this documentation has been prepared under thedirection and in the presence of Corey Sal M.D. Electronically Signed: fabiola Doherty. 02/23/2019. 2:05 PM . Corey Harvey M.D., personally performed the services described in this documentation. All medical record entries made by the scribe were at my direction and in my presence. I have reviewed the chart and discharge instructions (if applicable) and agree that the record reflects my personal performance and is accurate and complete. Corey Sal M.D. . 02/23/2019. 4:08 PM. documented in this encounter Plan of Treatment Scheduled Referrals Name Type Priority Associated Order Schedule Diagnoses Dermatology office Outpatient Referral Routine Ex pected: visit (clinic) 12/19/2020 (Approximate), Expires: 02/23/2022 documented as of this encounter Visit Diagnoses Diagnosis Keratoderma Acquired - Primary Stasis Dermatitis Lower Extremity Bilate ral documented in this encounter
--- OUTSIDE RECORDS SUMMARY | 2022-05-21 07:52 | XMS_ITS | Encounter Summary ---
:1945 Author Organization [facility] Address [address] [place] [address] Care Team Providers Name Role Phone Unavailable [...]
--- OUTSIDE RECORDS SUMMARY | 2022-05-21 07:52 | XMS_ITS | Encounter Summary ---
:1945 Author Organization [facility] Address [address] [place] [address] Care Team Providers Name Role Phone Unavailable Primary Care Provider Unavailable Reason for Referral Outpatient (Routine) - Closed Specialty Diagnoses / Procedures Referred By Contact Refer red To Contact Dermatology Corey Sal M.D . [address] [phone] Referral ID Status Reason Start Date Expiration Date Visits Requ ested Visits Authorized [id number] Closed 12/19/2020 12/19/2021 1 1 Scheduling Instructions Recheck hyperkeratosis and dermatitis.23 0-3pm. 30 minutes Reason for Visit Reason Comments Eczema Outpatient (Routine) - Closed Specialty Diagnoses / Procedures Referred By Contact Refer red To Contact Dermatology Corey Sal M.D . [address] [phone] Referral ID Status Reason Start Date Expiration Date Visits Requ ested Visits Authorized [id number] Closed 02/23/2019 02/23/2020 1 1 Encounter Details Date Type Department Care Team Description 12/19/2020 Office Visit Department of Corey Sal Hyperkeratosi s (Primary Dx); Dermatology in [place] M.D. [address] [phone] Social History Tobacco Use Types Packs/Day Years Used Date Smoking Tobacco: Never Smokeless Tobacco: Never Sex Assigned at Date Recorded Not on file documented as of this encounter Progress Notes Corey Sal M.D. - 12/19/2020 11:15 AM CDT SUBJECTIVE CHIEF COMPLAINT / REASON FOR VISIT History of keratoderma involving the feet History of stasis dermatitis involving the legs HISTORY OF PRESENT ILLNESS Annie Carter is a pleasant 75 y.o. female who follows up for keratoderma and stasis dermatitis.The patient was last seen by me in Dermatology clinic on 02/23/2019 for evaluation of acquired keratoderma involving the feet which we felt was markedly improved and for statis dermatitis involving the legs which we also felt were improved. The patient has a history of severe acquired keratoderma since July 2017 which we have been closely following here and previously in [place]. During her most recent visit on 06/02/18, [...] pain with walking. I recommended decreasing the urea20% cream??from twice??to once daily to the plantar [...] distal leg every other day for one??further week??week. Today, the patient reports that she applied the mometasone as directed during this flare until it resolved. However, she does have concern for a new flare of itching and mild erythema involving her lower legs after a recent trip to [place]. She has been applying CeraVe moisturizer at least twice daily, which helps relieve the itching. During her most recent visit on 02/23/2019, [...] to a few days at a time. Since her last visit in January, the keratoderma has been doing well on the [...] any new medications other than the Clindamycin. MEDICAL HISTORY Keratoderma involving feet Stasis dermatitis involving legs OBJECTIVE PHYSICAL EXAMINATION General: Awake, alert, in no acute distress, and with appropriate affect. Skin: Limited skin exam done today. Examination of the plantar feet reveals some focal areas of hyperkeratosis on the right heel, mid foot, proximal foot, and periungual plantar toes. On the left plantar foot she has minimal focal hyperkeratosis involving the left medial heel area, distal foot, and periungual plantar toes. No pustules. Examination of the left lower jasso area reveals a violaceous to erythematous dermatitic appearing plaque with minimal scale involving the left jasso with the area measuring approximately 14 cm in diameter x 11.5 cm in height. Inferior to this plaque is an eczematous annular plaque that measures 4.5 cm x 3.5 cm. Examination of the right lower jasos reveals a few annular eczematous plaques, the largest of which measures 2.5 cm x 2 cm. She also has an eczematous plaque involving the right dorsal ankle that measures 3.5 x 3.5 cm. No vesicles, blisters, or pustules for either jasso. She has some superficial varicose veins involving the lower legs. Examination of the oral cavity reveals no blisters or erosions. ASSESSMENT / PLAN #1 Plantar feet: Mild hyperkeratosis She can use the Urea 20% cream applied once daily to the thickened areas for one week at a time. Stop for 3-4 days. Resume again for another week. Apply Vaniply twice daily. Follow-up in 2 months. #2 Lower legs bilaterally: Stasis dermatitis The rash is compatible with her history of stasis dermatitis. I would like to restart the mometasoneointment once daily for one week. Stop for one week then resume again for 1 week and repeat for a second cycle. She will stop after the second 1 week of treatment with the mometasone ointment and just simply use moisturizer thereafter. Potential side effects with overuse of topical steroids including atrophy and telangiectasia of the skin discussed and the patient understands no to overuse. Continue with Clindamycin antibiotics as prescribed by her dentist. We did discuss the potential of referral to [place] for patch testing vs potential biopsy but we will defer these treatments at this time especially the biopsy as I would be worried about a poor healing wound in the area. Will consider referral for patch testing if she has not improved with she returns in 2 months. Additionally, I asked her to take a photo of her legs after two cycles have finished. Photographs taken of the legs today. Follow up in 2 months for a recheck. PATIENT EDUCATION: Ready to learn. No apparent learning barriers were identified. Learning preferences include listening. Explained diagnosis and treatment plan; patient/guardian of patient expressed understanding of thecontent. By signing my name below, I, Lisa Westfall, attest that this documentation has been prepared underthe direction and in the presence of Corey Sal M.D. Electronically Signed: fabiola Kendrick. ICorey M.D., personally performed the services described [...] Outpatient Referral Routine Ex pected: visit (clinic) 02/19/2021 (Approximate), Expires: 02/19/2021 documented as of this encounter Visit Diagnoses Diagnosis Hyperkeratosis - Primary Dermatitis documented in this encounter
--- OUTSIDE RECORDS SUMMARY | 2022-05-21 07:52 | XMS_ITS | Encounter Summary ---
:1945 Author Organization [facility] Address [address] [place] [address] Care Team Providers Name Role Phone Unavailable Primary Care Provider Unavailable Encounter Details Date Type Department Care Team Description 04/06/2018 Orders Only [facility] - Eusebio Pierce M.D. [address] , [facility] [address] [place] [phone] [place] [phone] (Wo rk) Social History Tobacco Use Types Packs/Day Years Used Date Smoking Tobacco: Never Smokeless Tobacco: Never Sex Assigned at Date Recorded Not on file documented as of this encounter Plan of Treatment Not on filedocumented as of this encounter Visit Diagnoses Not on filedocumented in this encounter
--- OUTSIDE RECORDS SUMMARY | 2022-05-21 07:52 | XMS_ITS | Clinical Summary ---
:1945 Author Organization [facility] [place] [address] Care Team Providers Name Role Phone Pcp, No Primary Care Provider Unavailable Allergies Active Allergy Reactions Severity Noted Date Comments Bacitracin Rash 09/02/2018 Hydrocodone-Acetaminophen Nausea Only 01/01/2016 Iodinated Contrast Media Hives 01/02/2016 IV Dye Meperidine Nausea Only 01/01/2016 Methadone Nausea Only 01/01/2016 Dizziness Miconazole Nitrate Hives 01/01/2016 Morphine Nausea Only 01/01/2016 Oxycodone-Acetaminophen Nausea Only 01/01/2016 Sulfa (Sulfonamide Antibiotics) Nausea And Vomiting Medications Medication Sig Dispensed Refills Start Date End Date Status multivitamin (MULTIPLE Take 1 tablet by 0 09/02/2018 Active VITAMINS) tablet mouth once daily. metFORMIN (GLUCOPHAGE) Take 1 tablet by 0 01/01/2016 Active 1,000 mg tablet mouth 2 times daily with meals. lisinopril (PRINIVIL; Take 1 tablet by 0 01/01/2016 Active ZESTRIL) 10 mg tablet mouth once daily. glimepiride (AMARYL) 1 Take 1 mg by 0 Active mg tablet mouth once daily with a meal. atorvastatin (LIPITOR) Take 20 mg by 0 Active 20 mg tablet mouth once daily. coenzyme q10 100 mg cap Take 1 capsule by 0 01/01/20 16 Active mouth once daily. magnesium 250 mg tab Take 1 tablet by 0 01/01/2016 Active mouth once daily. pasdy-3-wmf-epa-dpa-fis Take 1,200 mg by 0 6 Active h oil (FISH OIL) mouth once daily. 1,050-1,200 mg cap capsule loratadine 10 mg cap Take 1 capsule by 0 02/09/2016 Active mouth once daily if needed. Active Problems Not on file Social History Tobacco Use Types Packs/Day Years Used Date Never Assessed Sex Assigned at Date Recorded Not on file Obstetrics History Last Filed Vital Signs Vital Sign Reading Time Taken Comments Blood Pressure 141/81 09/02/2018 10:06 AM HOT METAL CHARGER Pulse 82 09/02/2018 10:06 AM HOT METAL CHARGER Temperature - - Respiratory Rate - - Oxygen Saturation 97% 09/02/2018 10:06 AM HOT METAL CHARGER Inhaled Oxygen Concentration - - Weight 95.6 kg (210 lb 12.8 oz) 09/02/2018 10:06 AM HOT METAL CHARGER Height - - Body Mass Index - - Plan of Treatment Health Maintenance Due Date Last Done Comments COVID-19 vaccine series (#1) 1945 Tdap 1958 Depression screening for age 12+ 1959 BMI (ht and wt on same day) for age 18+ 1965 Hepatitis C screening for age 18-79 1965 Tetanus booster 1967 Colonoscopy through age 75 1992 Lipids for age 45-75 1992 Mammogram for age 45-75 1992 Zoster (shingles) series for age 50+ (1 of 2) 1997 DEXA/DXA scan for age 65+ 2012 Medicare Wellness for age 65+ 2012 Pneumococcal series for age 65+ (1 - PCV) 2012 Influenza for age 65+ 03/28/2022 Results Not on filefrom Last 3 Months Insurance Payer Benefit Plan / Subscriber ID Effective Dates Phone Addre ss Type Group MEDICA MR MEDICA PRIME [id number] 2018-Present [address] [address] [employer] [place] , [facility] [id number] Care Teams Prenatal Nurse Relationship Specialty Start Date End Date Pcp, No PCP - General 09/01/18 .
--- OUTSIDE RECORDS SUMMARY | 2022-05-21 07:52 | XMS_ITS | Encounter Summary ---
:1945 Author Organization [facility] Address [address] [place] [address] Care Team Providers Name Role Phone Unavailable Primary Care Provider Unavailable Reason for Visit Reason Comments Eczema Appointment Request (Routine) - Closed Specialty Diagnoses / Procedures Referred By Contact Refer red To Contact Dermatology Referral ID Status Reason Start Date Expiration Date Visits Requ ested Visits Authorized [id number] Closed 11/04/2017 05/03/2018 1 1 Encounter Details Date Type Department Care Team Description 12/16/2017 Office Visit Department of Corey Sal, Arashoderm a Acquired (Primary Dx); Dermatology in [place] Stasis Dermatitis Lower Extremity [place], [place] [address] [phone] Social History Tobacco Use Types Packs/Day Years Used Date Smoking Tobacco: Never Smokeless Tobacco: Never Sex Assigned at Date Recorded Not on file documented as of this encounter Progress Notes Corey Sal M.D. - 12/16/2017 2:00 PM CDT CHIEF COMPLAINT Keratoderma involving plantar feet and stasis dermatitis HISTORY OF THE PRESENT ILLNESS Annie Carter is a pleasant 72 y.o. female who follows up for ongoing treatment and evaluation of keratoderma for the last 6-7 months per previous note being treated with urea 20% twice daily and Htrva-u-gvjuo 0.05% cream at bedtime. After two weeks of the Crgtz-S-ecztz she found she wasn't improving and her skin became irritated so she discontinued this treatment. She continues to use the urea 20% twice daily and CeraVe moisturizer once to twice daily. Recently, after a three mile walk, her feet became cracked and bled. Currently she states her feet feel improved with continued regular application of CeraVe. She denies any rash of her upper body. No one else at home has a rash. She denies anyhistory of dermatitis, eczema or psoriasis. She denies any GI upset, dysphagia, fever, night sweats or fatigue. She was previously diagnosed with stasis dermatitis affecting both legs which was treated with mometasone. We then stopped the mometasone as she had improved and used the CeraVe moisturizer only. During the last few days, her legs seem to have flared up. A few nights ago, she felt that her legs itchedseverely. She didn't notice any significant changes in appearance. PAST MEDICAL HISTORY She denies any history of dermatitis or psoriasis. PHYSICAL EXAM General: Awake, alert, in no acute distress, and with appropriate affect. Skin: Examination of her left plantar foot revealed some mild keratoderma still involving tips of toes but overall 90% improved. Examination of her right foot revealed thicker keratoderma involving tips of toes and some focal areas involving the right mid lateral foot extending to the heel. No blisters, vesicles or pustules. Examination of bilateral lower legs revealed mild to moderate stasis dermatitis with PIH and stasis changes left greater than right leg. Examination of thighs revealed more psoriasiform dermatitic macules with PIH which have improved and were previously biopsied and the diagnosis favoring dermatitis was made. Examination of hands revealed no rashes. Fingernails with no changessuggesting psoriasis. Examination of scalp revealed no changes suggestive of psoriasis. IMPRESSION AND PLAN #1 Plantar aspects of feet: Acquired keratoderma, markedly improved As noted previously, keratoderma can be associated with GI or aerodigestive malignancy. Previous work up included CXR to rule out malignancy. She has no GI symptoms or dysphagia. Complete physical examwith Dr. Ndiaye her primary care physician at [facility] is scheduled for January. This was discussed with the patient. Photograph taken today with patient's verbal consent. The patient was advised to concentrate urea 20% application on the toes of her feet twice daily and involved areas of her right foot once a day until symptoms improve. She can discontinue use of urea on her left foot as rash has markedly improved and there is concern for irritation of her skin. Discussed treatment options w ith the patient including resuming Retin-A cream at bedtime or other stronger retinoids. We elected to simply resume the Retin-A cream 0.05 percent using the supply she already has at home. She is amenable with this plan. Recommended applying Vaniply once or twice daily for her foot fissures. Follow up in 3 months or sooner if needed. #2 Lower legs: Stasis dermatitis, mild flare left leg greater than right leg Photograph taken today with patient's verbal consent. Resume mometasone cream sparingly to involved areas daily for 1-2 weeks then stop. Continue CeraVe thereafter. She may resume the mometasone cream for 1-2 weeks if needed for flares of symptoms. Follow-up in 3 months or earlier if needed. By signing my name below, I, Favio Quevedo, attest that this documentation has been prepared underthe direction and in the presence of Corey Sal M.D.. Electronically Signed: fabiola Acosta. 12/16/2017. 2:22 PM . I, Corey Sal M.D., personally performed the services described in this documentation. All medical record entries made by the scribe were at my direction and in my presence. I have reviewed the chart and discharge instructions (if applicable) and agree that the record reflects my personal performance and is accurate and complete. Corey Sal M.D. . 12/16/2017. 3:46 PM. documented in this encounter Plan of Treatment Not on filedocumented as of this encounter Visit Diagnoses Diagnosis Keratoderma Acquired - Primary Stasis Dermatitis Lower Extremity Bilate ral documented in this encounter
--- OUTSIDE RECORDS SUMMARY | 2022-05-21 07:52 | XMS_ITS | Encounter Summary ---
:1945 Author Organization [facility] Address [address] [place] [address] Care Team Providers Name Role Phone Unavailable [...]
[2022-05-21 10:41] LABS: Albumin* 4.3 g/dL (3.3-5.0); Chloride* 103 mmol/L (96-114)
[2022-05-21 10:42] LABS: Potassium* 4.1 mmol/L (3.6-5.1)
[2022-05-21 10:44] LABS: Alanine Aminotransferase* 31 U/L (4-35); Alkaline Phosphatase* 81 U/L (40-150); Aspartate Amino Transferase* 37 U/L (12-35); Bilirubin Total* 0.7 mg/dL (0.1-1.5); Blood Urea Nitrogen* 13 mg/dL (7-30); Carbon Dioxide* 23 mmol/L (20-32); Cholesterol* 142 mg/dL (90-199); Creatinine* 0.6 mg/dL (0.5-1.5); Estimated Glomerular Filt Rate 94 ml/min; Glucose* 147 mg/dL (60-115); Total Protein* 7.3 g/dL (6.0-8.3); Triglycerides* 131 mg/dL (40-149)
[2022-05-21 10:45] LABS: Calcium* 8.2 mg/dL (8.4-10.6); HDL Cholesterol* 47 mg/dL (>=50); LDL Cholesterol Calculated 69 mg/dL (<100)
[2022-05-21 10:54] LABS: Creatinine Urine 138.9 mg/dL
[2022-05-21 10:58] LABS: Microalbumin Creatinine Ratio 10 mg/g (0-30); Microalbumin Urine 2 mg/dL
[2022-05-21 11:07] LABS: Sodium* 136 mmol/L (135-149)
== END 2022-05-21 10:47 | disposition home or self-care (01) ==
PROVIDERS: PCP Internal Medicine; Visit Provider Internal Medicine
DX: E11.9 Type 2 diabetes mellitus without complications (principal); E78.5 Hyperlipidemia, unspecified; I10 Essential (primary) hypertension; E66.9 Obesity, unspecified
CPT/HCPCS: 80053; 80061; 82043; 82570

== ENCOUNTER 2023-01-20 10:04 | Outpatient (CLI) | payer MEDICARE, SELFPAY ==
--- NOTE | 2023-01-20 10:15 | CRLHL7_ITS ---
For Patients: As a result of the Century Cures Act, medical imaging exams and procedure reports are released immediately into your electronic medical record. You may view this report before your referring provider. If you have questions, please contact your health care provider. BILATERAL SCREENING MAMMOGRAM WITH COMPUTER-AIDED DETECTION AND TOMOSYNTHESIS TECHNIQUE: CC and MLO views were obtained. These mammographic images have been obtained using full-field digital technique. These mammographic images were interpreted with the benefit of computer-aided detection. Breast Tomosynthesis was used in this interpretation. COMPARISON FILM: 01/17/22, 11/21/20, 09/17/19. FINDINGS: There are scattered areas of fibroglandular density IMPRESSION: There is no radiographic evidence for malignancy. ASSESSMENT: BI-RADS Category 1: Negative RECOMMENDATION: Routine screening mammogram in 1 year. A lay language report of this examination will be provided to the patient. Davi Dupree M.D. Diagnostic Radiologist [email or web address] SEAN/Dictated by: Davi Dupree MD @ 01/20/2023 12:36:00 PM (Electronically Signed)
== END 2023-01-20 10:05 | disposition home or self-care (01) ==
PROVIDERS: PCP Internal Medicine; Visit Provider Internal Medicine
DX: Z12.31 Encounter for screening mammogram for malignant neoplasm of breast (principal)
CPT/HCPCS: 77063; 77067

== ENCOUNTER 2023-06-30 08:13 | Outpatient (CLI) | payer MEDICARE, OTHER, SELFPAY | END 2023-06-30 08:14 | disposition home or self-care (01) | LOC: NFLDREF 07-03 05:43 | PROVIDERS: PCP Internal Medicine; Referring Provider Internal Medicine; Visit Provider Internal Medicine | DX: E11.9 Type 2 diabetes mellitus without complications (principal) | CPT/HCPCS: 80053; 80061; 82043; 82570 ==

== ENCOUNTER 2024-01-22 12:54 | Outpatient (CLI) | payer MEDICARE, OTHER, SELFPAY ==
--- NOTE | 2024-01-22 13:00 | CRLHL7_ITS ---
For Patients: As a result of the Century Cures Act, medical imaging exams and procedure reports are released immediately into your electronic medical record. You may view this report before your referring provider. If you have questions, please contact your health care provider. BILATERAL SCREENING MAMMOGRAM WITH COMPUTER-AIDED DETECTION AND TOMOSYNTHESIS TECHNIQUE: CC and MLO views were obtained. These mammographic images have been obtained using full-field digital technique. These mammographic images were interpreted with the benefit of computer-aided detection. Breast Tomosynthesis was used in this interpretation. COMPARISON FILM: 01/20/23, 01/17/22, 11/21/20. FINDINGS: There are scattered areas of fibroglandular density. IMPRESSION: There is no radiographic evidence for malignancy. ASSESSMENT: BI-RADS Category 1: Negative RECOMMENDATION: Routine screening mammogram in 1 year. A lay language report of this examination will be provided to the patient. Davi Dupree M.D. Diagnostic Radiologist [email or web address] SP/Dictated by: Davi Dupree MD @ 01/28/2024 11:26:00 AM (Electronically Signed)
--- OUTSIDE RECORDS SUMMARY | 2024-01-22 13:00 | XMS_ITS | Clinical Summary ---
Author Organization [employer] [facility] Address [place], [place] [address] Care Team Providers Care Vortex Operator Name Role Phone Pcp, No Primary Care Provider Unavailabl e Allergies Active Allergy Reactions Criticality Noted Date Comments Bacitracin Rash 09/02/2018 Hydrocodone-Acetaminophen Nausea Only 6 Iodinated Contrast Media Hives 01/02/2016 IV Dye Meperidine Nausea Only 01/01/2016 Methadone Nausea Only 01/01/2016 Dizziness Miconazole Nitrate Hives 01/01/2016 Morphine Nausea Only 01/01/2016 Oxycodone-Acetaminophen Nausea Only 01/01/2016 Sulfa (Sulfonamide Antibiotics) Nausea And Vomiting 01/01/2016 Medications Medication Sig Dispensed Refills Start Date End Date Status multivitamin (MULTIPLE VITAMINS) tablet Take 1 tablet by mouth once daily. 0 09/02/2018 Active metFORMIN (GLUCOPHAGE) 1,000 mg tablet Take 1 tablet by mouth 2 times daily with meals. 01/01/2016 Active lisinopril (PRINIVIL; ZESTRIL) 10 mg tablet Take 1 tablet by mouth once daily. 01/01/2016 Active glimepiride (AMARYL) 1 mg tablet Take 1 mg by mouth once daily with a meal. Active atorvastatin (LIPITOR) 20 mg tablet Take 20 mg by mouth once daily. Active coenzyme q10 100 mg cap Take 1 capsule by mouth once daily. 01/01/2016 Active magnesium 250 mg tab Take 1 tablet by mouth once daily. 01/01/2016 Active jezkv-8-goi-epa-dpa-fi sh oil (FISH OIL) 1,050-1,200 mg cap capsule Take 1,200 mg by mouth once daily. 01/01/2016 Active loratadine 10 mg cap Take 1 capsule by mouth once daily if needed. 02/09/2016 Active Social History Tobacco Use Types Packs/Day Years Used Date Smoking Tobacco: Never Assessed Sex and Gender Information Value Date Recorded Sex Assigned at Not on file Gender Identity Not on file Sexual Orientation Not on file Obstetrics History Last Filed Vital Signs Vital Sign Reading Time Taken Comments Blood Pressure 141/81 09/02/2018 10:06 AM SOFT METALS ENGRAVER HAND Pulse 82 09/02/2018 10:06 AM SOFT METALS ENGRAVER HAND Temperature - - Respiratory Rate - - Oxygen Saturation 97% 09/02/2018 10: 06 AM SOFT METALS ENGRAVER HAND Inhaled Oxygen Concentration - - Weight 95.6 kg (210 lb 12.8 oz) 019 10:06 AM SOFT METALS ENGRAVER HAND Height - - Body Mass Index - - Plan of Treatment Health Maintenance Due Date Last Done Comments Tdap 1956 Depression screening for age 12+ 1959 BMI (ht and wt on same day) for age 18+ 1965 Hepatitis C screening for age 18-79 1965 Tetanus booster 1967 Zoster (shingles) series for age 50+ (1 of 2) 03/15/19 97 DEXA/DXA scan for age 65+ 2012 Medicare Wellness for age 65+ 2012 Pneumococcal series for age 65+ (1 of 1 - PCV) 012 COVID-19 vaccine series (1 - 2022- season) 3 Influenza for age 65+ 03/28/2024 Care Teams Vortex Operator Relationship Specialty Start Date End Date Pcp, No . PCP - General 09/01/18
== END 2024-01-22 12:55 | disposition home or self-care (01) ==
LOC: US 12:58
PROVIDERS: PCP Internal Medicine; Visit Provider Internal Medicine
DX: Z12.31 Encounter for screening mammogram for malignant neoplasm of breast (principal)
CPT/HCPCS: 77063; 77067

== ENCOUNTER 2024-06-28 08:15 | Outpatient (CLI) | payer MEDICARE, OTHER, SELFPAY ==
--- OUTSIDE RECORDS SUMMARY | 2024-06-29 08:02 | XMS_ITS | Clinical Summary ---
Author Organization [employer] [facility] Address [place], [place] [address] Care Team Providers Care Prefitter Name Role Phone Pcp, No Primary Care [...] tablet by mouth once daily. 01/01/2016 Active edayl-2-ira-epa-dpa-fi sh oil (FISH OIL) 1,050-1,200 mg cap [...] Comments Blood Pressure 141/81 09/02/2018 10:06 AM MEDICAL ACCOUNTS RECEIVABLE SPECIALIST Pulse 82 09/02/2018 10:06 AM MEDICAL ACCOUNTS RECEIVABLE SPECIALIST Temperature - - Respiratory Rate - - Oxygen Saturation 97% 09/02/2018 10: 06 AM MEDICAL ACCOUNTS RECEIVABLE SPECIALIST Inhaled Oxygen Concentration - - Weight 95.6 kg (210 lb 12.8 oz) 019 10:06 AM MEDICAL ACCOUNTS RECEIVABLE SPECIALIST Height - - Body Mass Index - [...] 65+ (1 of 1 - PCV) 012 RSV vaccine for adults or pr egnancy (1 - 1-dose 75+ series) 2022 COVID-19 vaccine series (1 - 2023-25 season) 4 Influenza for age 65+ 03/28/2024 Care Teams Prefitter Relationship Specialty Start Date End Date Pcp, No . PCP - General 09/01/18
== END 2024-06-28 08:16 | disposition home or self-care (01) ==
LOC: NFLDREF 06-29 08:00
PROVIDERS: PCP Internal Medicine; Referring Provider Internal Medicine; Visit Provider Internal Medicine
DX: E11.319 Type 2 diabetes mellitus with unspecified diabetic retinopathy without macular edema (principal); I10 Essential (primary) hypertension; E66.9 Obesity, unspecified; E78.5 Hyperlipidemia, unspecified
CPT/HCPCS: 80053; 80061; 82043; 82570

== ENCOUNTER 2024-11-24 13:39 | Emergency (ER) | payer MEDICARE, OTHER, SELFPAY ==
[2024-11-24] VITALS (9 sets, daily range): BP systolic 129–147; BP diastolic 73–87; PULSE 77–93; RESP 20; TEMP 36.6; O2SAT 97–100; BMI 30.7
--- OUTSIDE RECORDS SUMMARY | 2024-11-24 13:41 | XMS_ITS | Clinical Summary ---
Author Organization [facility] Address [address] [place] [id number] Care Team Providers Care Delivery Crew Member Name Role Phone Pcp, No Primary Care Provider Unavailabl e Allergies Active Allergy Reactions Criticality Noted Date Comments Bacitracin Rash 09/02/2018 Hydrocodone-Acetaminophen Nausea Only 6 Iodinated Contrast Media Hives 01/02/2016 IV Dye Meperidine Nausea Only 01/01/2016 Methadone Nausea Only 01/01/2016 Dizziness Miconazole Nitrate Hives 01/01/2016 Morphine Nausea Only 01/01/2016 Oxycodone-Acetaminophen Nausea Only 01/01/2016 Sulfa (Sulfonamide Antibiotics) Nausea And Vomiting 01/01/2016 Medications multivitamin (MULTIPLE VITAMINS) tablet Take 1 tablet [...] tablet by mouth once daily. 01/01/2016 Active zsrsq-2-win-epa -dpa-fish oil (FISH OIL) 1,050-1,200 mg cap capsule Take 1,200 mg by mouth once daily. 01/01/2016 Active loratadine 10 mg cap Take 1 capsule by mouth once daily if needed. 02/09/2016 Active Social History Tobacco Use Types Packs/Day Years Used Date Smoking Tobacco: Never Assessed Comments Unknown Sex and Gender Information Value Date Recorded Sex Assigned at Not on file Legal Sex Female 4:58 PM CONSTRUCTION DIRECTOR Gender Identity Not on file Sexual Orientation Not on file Obstetrics History Last Filed Vital Signs Vital Sign Reading Time Taken Comments Blood Pressure 141/81 09/02/2018 10:06 AM CONSTRUCTION DIRECTOR Pulse 82 09/02/2018 10:06 AM CONSTRUCTION DIRECTOR Temperature - - Respiratory Rate - - Oxygen Saturation 97% 09/02/2018 10: 06 AM CONSTRUCTION DIRECTOR Inhaled Oxygen Concentration - - Weight 95.6 kg (210 lb 12.8 oz) 019 10:06 AM CONSTRUCTION DIRECTOR Height - - Body Mass Index - - Plan of Treatment Health Maintenance Due Date Last Done Comments Tdap 1956 Depression screening for age 12+ 1959 BMI (ht and wt on same day) for age 18+ 1965 Hepatitis C screening for age 18-79 1965 Tetanus booster 1967 Pneumococcal series for age 50+ (1 of 1 - PCV) 997 Zoster (shingles) series for age 50+ (1 of 2) 03/15/19 97 DEXA/DXA scan for age 65+ 2012 Medicare Wellness for age 65+ 2012 RSV vaccine for adults or pr egnancy (1 - 1-dose 75+ series) 2022 COVID-19 vaccine series ( - season) Influenza Vaccine (Season Ended) 2025 Insurance [employer] [facility] [place] ONLY Care Teams Delivery Crew Member Relationship Specialty Start Date End Date Pcp, No . PCP - General 09/01/18
--- NOTE | 2024-11-24 14:01 | ED.GENADULT ---
HPI - General Adult General Chief complaint: Abdominal Pain Stated complaint: abdominal pain Time Seen by Provider: 11/24/24 13:45 History of Present Illness HPI narrative: Lower abdominal pain since . Diarrhea and nausea daily. Intermittent emesis. Sent from clinic today for possible acute abdomen. 79-year-old woman presenting to the emergency department with abdominal pain. This is now 4th day of abdominal discomfort. Has had diarrhea and occasional vomiting. I was contacted by primary care provider with concern of acute abdomen noting rebound tenderness. Pain had really escalated over the last 24 hours. Does have feeling of weakness. Has been trying treatment with a gentle diet; brat diet. Has not had a fever. Pain is persistent but somewhat colicky. Underlying history of diabetes taking glimepiride and dulaglutide. Related Data Home Medications ?Medication ?Instructions ?Recorded ?Confirmed coenzyme Q10 100 mg capsule 200 mg PO DAILY 02/21/22 11/30/24 loratadine 10 mg tablet 10 mg PO QDAY 02/21/22 11/30/24 glucosamine-chondroitin 250 mg-200 1 tab PO DAILY 12/24/22 11/30/24 mg tablet (Osteo Bi-Flex) acetaminophen 500 mg capsule 500 mg PO Q6H PRN 01/19/24 11/30/24 Previous Rx's ?Medication ?Instructions ?Recorded lancets 30 gauge #100 ea 03/19/22 glimepiride 4 mg tablet 4 mg PO DAILY #90 tabs 01/19/24 lisinopril 10 mg tablet 10 mg PO DAILY #90 tabs 01/19/24 Diabetic Test Strips #100 ea 07/01/24 atorvastatin 20 mg tablet 20 mg PO QPM #90 tabs 08/31/24 metformin 1,000 mg tablet 1,000 mg PO BIDWMEAL #180 tabs 09/21/24 omeprazole 20 mg capsule,delayed 20 mg PO QDAY #90 caps 09/21/24 release dulaglutide 0.75 mg/0.5 mL 0.75 mg (0.5 mL) subcut QWEEK #12 10/01/24 subcutaneous pen injector mL ([facility]) blood sugar diagnostic (OneTouch #100 strips 11/01/24 Ultra Test strips) Allergies Allergy/AdvReac Type Severity Reaction Status Date / Time miconazole Allergy Intermediate Hives Verified 11/30/24 08:25 acetaminophen Allergy Mild Nausea Verified 11/30/24 08:25 bacitracin Allergy Mild Rash Verified 11/30/24 08:25 latex Allergy Mild Rash Verified 11/30/24 08:25 codeine Allergy Hallucinati Verified 11/30/24 08:25 ons hydrocodone AdvReac Mild Nausea Verified 11/30/24 08:25 meperidine AdvReac Mild Nausea Verified 11/30/24 08:25 methadone AdvReac Mild Nausea Verified 11/30/24 08:25 morphine AdvReac Mild Nausea Verified 11/30/24 08:25 oxycodone AdvReac Mild Nausea Verified 11/30/24 08:25 Gadolinium Allergy Mild Hives Uncoded 11/30/24 08:25 Sulfa Antibiotics AdvReac Mild Vomiting Uncoded 11/30/24 08:25 valoxone AdvReac Mild Nausea Uncoded 11/30/24 08:25 Review of Systems Status of ROS: Reports: 6 or more systems reviewed and unremarkable except as noted in History and below [facility] Medical History History of iron deficiency anemia (2012) ?Z86.2 - Personal history of diseases of the blood and blood-forming organs and certain disorders involving the immune mechanism (ICD-10) History of depression (2010) ?Z86.59 - Personal history of other mental and behavioral disorders (ICD-10) Surgical History History of carpal tunnel release (2016) History of cholecystectomy (1988) History of total hysterectomy with bilateral salpingo-oophorectomy (BSO) (1989) History of varicose vein ligation (2015) Status post cervical spinal arthrodesis (2005) Social History What is your current living situation?: I presently have a place to live Problems where you live: no known problems In the past 12 months, utilities in danger of being shut off: no In past 12 months, lack of transportation kept you from medical appts, meetings, work, or getting things needed for daily living: no In the past 12 mos, have been you worried that your food would run out before you had money to buy more?: never true In the past 12 mos, the food you bought just didn't last and you didn't have money to buy more?: never true Smoking Status: Never smoker How often does anyone, including family, friends and others, physically hurt you: never How often does anyone, including family, friends and others, insult or talk down to you: never How often does anyone, including family, friends and others, threaten you with harm: never How often does anyone, including family, friends and others, scream or curse at you: never Exam Narrative: Exam Narrative: Pleasant. Seems clearly uncomfortable. Skin is warm and dry. She is well-perfused. Abdomen is with present bowel sounds. Diffusely tender particularly the mid abdomen. I do not appreciate peritoneal signs. Heart is in regular rate and rhythm without murmur rub or gallop. Mouth sounds sticky. She is breathing easily. Const: Vital Signs, click to edit/add: Vital Signs - 24 hr 11/24/24 13:59 Temperature 97.8 F Pulse Rate [Pulse Oximeter] 88 Respiratory Rate 20 Blood Pressure [Ri ght Upper Arm] 129/77 Pulse Oximetry 99 Oxygen Delivery Me thod Room Air Documenting provider has reviewed patient's vital signs: yes Course Vital Signs Vital signs: Initial Vital Signs Temperature 97.8 F 11/24/24 13:59 Temperature Source Temporal Artery Scan 11/24/24 13:59 Pulse Rate 88 11/24/24 13:59 Respiratory Rate 20 11/24/24 13:59 Blood Pressure 129/77 11/24/24 13:59 Blood Pressure Mean 94 11/24/24 13:59 Blood Pressure Position Sitting 11/24/24 13:59 Pulse Oximetry 99 11/24/24 13:59 Oxygen Delivery Method Room Air 11/24/24 13:59 Vital Signs Temperature 97.8 F 11/24/24 13:59 Pulse Rate 88 11/24/24 13:59 Respiratory Rate 20 11/24/24 13:59 Blood Pressure 129/77 11/24/24 13:59 Pulse Oximetry 99 11/24/24 13:59 Oxygen Delivery Method Room Air 11/24/24 13:59 Temperature 97.8 F 11/24/24 13:59 Pulse Rate 86 11/24/24 17:02 Respiratory Rate 20 11/24/24 13:59 Blood Pressure 145/81 H 11/24/24 17:32 Pulse Oximetry 97 11/24/24 17:02 Oxygen Delivery Method Room Air 11/24/24 13:59 Medications Administered Medications: Discontinued Medications Generic Name Dose Route Start Last Admin Trade Name Lauren PRN Reason Stop Dose Admin Hyoscyamine 0.25 mg 11/24/24 16:34 11/24/24 16:45 Hyoscyamine Sulfate 0.125 Mg Tab SUBLINGUAL 11/24/24 16:35 0.25 mg ONCE ONE Administration Sodium Chloride 1,000 mls @ 1,000 mls/hr 11/24/24 14:09 11/24/24 15:30 0.9 % Sodium Chloride 1000 Ml IV 11/24/24 15:08 Infused .Q1H ONE Infusion Ketorolac Tromethamine 15 mg 11/24/24 14:09 11/24/24 14:42 Ketorolac 15 Mg/Ml Inj IVP 11/24/24 14:10 15 mg ONCE ONE Administration Morphine Sulfate 4 mg 11/24/24 14:09 11/24/24 14:46 Morphine 4 Mg/Ml Inj IVP 11/24/24 14:10 4 mg ONCE ONE Administration Ondansetron HCl 4 mg 11/24/24 14:09 11/24/24 14:42 Ondansetron 2 Mg/Ml Inj IVP 11/24/24 14:10 4 mg ONCE ONE Administration Medical Decision Making MDM Narrative Medical decision making narrative: It sounds like has some degree of abdominal colic/intestinal colic. Suspect secondary to enteritis with less likely colitis. In certainly possible has diverticulitis in this case as well. Perforated per primary concern? Evaluate for secondary urinary tract infection. Etiology nonspecific virus? Medication intolerance? Does not appear to be obstructed. Initiating treatment with IV fluids and pain relief in the form of immediate with morphine and ketorolac as well as Zofran for nausea and hyoscyamine for what I appreciate is some intestinal cramping. Labs are overall reassuring with only mildly elevated CRP. White count's normal. Urinalysis 2-5 white cells but symptoms and and exam I do not think are consistent with urinary tract infection anyway. Given intensity of symptoms though we have proceeded with CT imaging. I did independently review CT imaging; cannot appreciate any marked abnormality other than some thickening of small bowel loops. No stranding. Radiology over-read below TECHNIQUE: CT abdomen and pelvis with 93 mL Isovue 370 contrast. COMPARISON: None. FINDINGS: Lower chest: Basilar bronchiectasis mild patchy ground-glass opacities could be related to atelectasis/infectious inflammatory etiologies. Liver: Normal in size and attenuation. No suspicious masses. Gallbladder and bile ducts: Cholecystectomy. Pancreas: Unremarkable. No mass or inflammation. Spleen: Normal in size. No masses. Adrenal glands: Normal in size. No nodules. Kidneys: Normal in size. No suspicious masses, stones, or hydronephrosis. Left renal cyst lesion right. Low-attenuation kidney too small to characterize GI tract: Small hiatal hernia. Mildly prominent mid small bowel loops with wall thickening no obstruction seen findings nonspecific could be related to enteritis. The colon appears unremarkable. Vasculature: Abdominal aorta is normal in caliber. Lymph nodes: No lymphadenopathy. Peritoneum/Abdominal Wall: Unremarkable. No sign of mass or infiltration. No free air or significant free fluid. Pelvis: 2 centimeter right adnexal possible ovarian cyst Bones: Unremarkable for age. IMPRESSION: 1. Mildly prominent mid small bowel loops with wall thickening without obstruction seen findings nonspecific could be related to enteritis. 2. Basilar bronchiectasis. Patchy ground-glass opacities could be in part due to atelectasis as well as infectious inflammatory etiologies. Please note that all CT scans at this facility use dose modulation, iterative reconstruction, and/or weight-based dosing when appropriate to reduce radiation dose to as low as reasonably achievable. Dictated by Myranda Pitts MD @ 11/24/2024 3:55:29 PM Discussed all findings including adnexal cyst suspected Overall improved though still with tenderness on reexamination. Feels it is tolerable for home. Discussed pain management. Antiemetic. See patient discharge plan for further discussion Focus on hydration. Slow advance of diet over the next 24-36 hours. Diluted juices, soup broths, rice, crackers, toast. Be seen for marked increase in persistent pain, associated fever, intractable vomiting. Prescribing Zofran and [place] from [facility]. Consider ibuprofen or acetaminophen. Keep in mind each tablet of [place] does contain 325 mg of acetaminophen along with hydrocodone. My hope is that this does not cause too much nausea. Morphine was listed as causing nausea for you and I think you tolerated it pretty well today. Medical Records Medical records reviewed: Yes I reviewed the patient's medical records Lab Data Lab results reviewed: Yes I reviewed the patient's lab results Labs: Lab Results 11/24/24 11/24/24 11/24/24 Range/Units 14:31 14:55 Unknown WBC 7.69 (4.50-11.00) K/uL RBC 4.81 (4.00-5.20) m/uL Hgb 12.9 (12.0-16.0) gm/dL Hct 39.5 (33.0-51.0) % MCV 82 (80-100) fL MCH 27 (26-34) pg MCHC 33 (32-36) gm/dL RDW Coeff of Nicola 13.6 (11.5-15.5) % Plt Count 250 (140-440) K/uL Neut % (Auto) 64.8 (42.0-72.0) % Lymph % (Auto) 23.7 (20-44) % [facility] % (Auto) 9.0 (0.0-11.0) % Eos % (Auto) 2.0 (0.0-7.0) % Baso % (Auto) 0.4 (0.0-3.0) % Neut # (Auto) 4.99 (1.7-7.0) K/uL Lymph # (Auto) 1.82 (0.90-2.90) K/uL [facility] # (Auto) 0.70 (0.00-0.90) K/UL Eos # (Auto) 0.15 (0.00-0.50) K/uL Baso # (Auto) 0.03 (0.00-0.30) K/uL Abs Immat Gran (auto) 0.01 (0.00-0.30) K/uL Imm/Tot Granulo (auto) 0.1 % Diff Slide Review Acceptable Review (Acceptable) Sodium 138 (135-149) mmol/L Potassium 3.8 (3.6-5.1) mmol/L Chloride 101 (96-114) mmol/L Carbon Dioxide 24 (20-32) mmol/L Anion Gap 13 (7-15) mEq/L BUN 14 (7-30) mg/dL Creatinine 0.8 (0.5-1.5) mg/dL Estimated Creat Clear 44.10 Estimated GFR 76 ml/min Glucose 121 H (60-115) mg/dL Lactate 2.6 H (0.5-1.9) mmol/L Calcium 9.5 (8.4-10.6) mg/dL C-Reactive Protein 1.4 H (0.5-1.0) mg/dL Urine Color Yellow (Yellow) Urine Appearance Clear (Clear) Urine pH 6.0 (5.0-8.5) Ur Specific [place] <= 1.005 (1.000-1.030) Urine Protein Negative (Negative) Urine Glucose (UA) Negative (Negative) Urine Ketones Negative (Negative) Urine Blood Negative (Negative) Urine Nitrite Negative (Negative) Urine Bilirubin Negative (Negative) Urine Urobilinogen 0.2 (0.2-1.0) Ur Leukocyte Esterase Trace A (Negative) Urine RBC 0-2 (0-2) Urine WBC 2-5 (0-5) Ur Squamous Epith Cells None (None-Few) Urine Bacteria None (None) SARS-CoV-2 (PCR) Negative SARS-CoV-2 (Negative) Influenza Type A (PCR) Negative PCR FLU A (Negative) Influenza Type B (PCR) Negative PCR FLU B (Negative) Discharge Plan Discharge Clinical Impression: Enteritis, Abdominal pain, Adnexal cyst Patient Disposition: Home w/ Parent or Adult Condition: Improved Additional Instructions: Focus on hydration. Slow advance of diet over the next 24-36 hours. Diluted juices, soup broths, rice, crackers, toast. Be seen for marked increase in persistent pain, associated fever, intractable vomiting. Prescribing Zofran and [place] from [facility]. Consider ibuprofen or acetaminophen. Keep in mind each tablet of [place] does contain 325 mg of acetaminophen along with hydrocodone. My hope is that this does not cause too much nausea. Morphine was listed as causing nausea for you and I think you tolerated it pretty well today. Prescriptions: No Action coenzyme Q10 100 mg capsule 200 mg PO DAILY loratadine 10 mg tablet 10 mg PO QDAY acetaminophen 500 mg capsule 500 mg PO Q6H PRN lisinopril 10 mg tablet 10 mg PO DAILY Qty: 90 3RF glimepiride 4 mg tablet 4 mg PO DAILY Qty: 90 3RF (DME) Diabetic Test Strips Misc See Rx Instructions .Route Qty: 100 5RF Rx Instructions: Every morning, one touch ultra (DME) lancets 30 gauge misc See Rx Instructions .Route Qty: 100 1RF Rx Instructions: As directed glucosamine-chondroitin [Osteo Bi-Flex] 250-200 mg tablet 1 tab PO DAILY Patient Comments: 1500mg/200mg Rx Instructions: give after food/meal atorvastatin 20 mg tablet 20 mg PO QPM Qty: 90 1RF omeprazole 20 mg capsule,delayed release(DR/EC) 20 mg PO QDAY Qty: 90 1RF metformin 1,000 mg tablet 1,000 mg PO BIDWMEAL Qty: 180 1RF Trulicity 0.75 mg/0.5 mL pen injector 0.75 mg subcut QWEEK Qty: 12 0RF Rx Instructions: Check blood sugars carefully to avoid hypoglycemia/lows (DME) OneTouch Ultra Test Strip See Rx Instructions .ROUTE .COMPLEX Qty: 100 3RF Dose Instruction: TEST EVERY MORNING Rx Instructions: TEST EVERY MORNING Follow Up/Referrals: Kesha Ndiaye MD [Primary Care Provider] - Stand Alone Forms: [facility] Info Instructions
--- NOTE | 2024-11-24 14:09 | CRLHL7_ITS ---
For Patients: As a result of the Century Cures Act, medical imaging exams and procedure reports are released immediately into your electronic medical record. You may view this report before your referring provider. If you have questions, please contact your health care provider. INDICATION: Severe abdominal pain recent diarrhea TECHNIQUE: CT abdomen and pelvis with 93 mL Isovue 370 contrast. COMPARISON: None. FINDINGS: Lower chest: Basilar bronchiectasis mild patchy ground-glass opacities could be related to atelectasis/infectious inflammatory etiologies. Liver: Normal in size and attenuation. No suspicious masses. Gallbladder and bile ducts: Cholecystectomy. Pancreas: Unremarkable. No mass or inflammation. Spleen: Normal in size. No masses. Adrenal glands: Normal in size. No nodules. Kidneys: Normal in size. No suspicious masses, stones, or hydronephrosis. Left renal cyst lesion right. Low-attenuation kidney too small to characterize GI tract: Small hiatal hernia. Mildly prominent mid small bowel loops with wall thickening no obstruction seen findings nonspecific could be related to enteritis. The colon appears unremarkable. Vasculature: Abdominal aorta is normal in caliber. Lymph nodes: No lymphadenopathy. Peritoneum/Abdominal Wall: Unremarkable. No sign of mass or infiltration. No free air or significant free fluid. Pelvis: 2 centimeter right adnexal possible ovarian cyst Bones: Unremarkable for age. IMPRESSION: 1. Mildly prominent mid small bowel loops with wall thickening without obstruction seen findings nonspecific could be related to enteritis. 2. Basilar bronchiectasis. Patchy ground-glass opacities could be in part due to atelectasis as well as infectious inflammatory etiologies. Please note that all CT scans at this facility use dose modulation, iterative reconstruction, and/or weight-based dosing when appropriate to reduce radiation dose to as low as reasonably achievable. Dictated by Myranda Pitts MD @ 11/24/2024 3:55:29 PM (Electronically Signed)
[2024-11-24 14:33] LABS: Lactate* 2.6 mmol/L (0.5-1.9)
[2024-11-24 14:34] LABS: Basophils Absolute Auto 0.03 K/uL (0.00-0.30); Basophils Percent Auto 0.4 % (0.0-3.0); Eosinophils Absolute Auto 0.15 K/uL (0.00-0.50); Hematocrit 39.5 % (33.0-51.0); Hemoglobin* 12.9 gm/dL (12.0-16.0); Immature Granulocytes Abs Auto 0.01 K/uL (0.00-0.30); Immature Granulocytes Pct Auto 0.1 %; Lymphocytes Absolute Auto 1.82 K/uL (0.90-2.90); Lymphocytes Percent Auto 23.7 % (20-44); Mean Corpuscular HGB Conc 33 gm/dL (32-36); Mean Corpuscular Hemoglobin 27 pg (26-34); Mean Corpuscular Volume 82 fL (80-100); Neutrophils Absolute Auto 4.99 K/uL (1.7-7.0); Neutrophils Percent Auto 64.8 % (42.0-72.0); Platelet Count* 250 K/uL (140-440); RDW Coefficient of Variation % 13.6 % (11.5-15.5); Red Blood Count 4.81 m/uL (4.00-5.20); White Blood Count* 7.69 K/uL (4.50-11.00)
[2024-11-24] MEDS: 0.9 % SODIUM CHLORIDE 1000 ml 1,000 ML IV (14:42)
[2024-11-24] MEDS: KETOROLAC 15 MG/ML inj IVP (14:42)
[2024-11-24] MEDS: ONDANSETRON 2 MG/ML inj 4 MG IVP (14:42)
[2024-11-24] MEDS: MORPHINE 4 MG/ML INJ IVP (14:46)
[2024-11-24 14:47] LABS: Chloride* 101 mmol/L (96-114); Potassium* 3.8 mmol/L (3.6-5.1); Sodium* 138 mmol/L (135-149)
[2024-11-24 14:50] LABS: Anion Gap 13 mEq/L (7-15); Carbon Dioxide* 24 mmol/L (20-32)
[2024-11-24 14:51] LABS: Blood Urea Nitrogen* 14 mg/dL (7-30); Calcium* 9.5 mg/dL (8.4-10.6); Creatinine* 0.8 mg/dL (0.5-1.5); Estimated Glomerular Filt Rate 76 ml/min; Glucose* 121 mg/dL (60-115)
[2024-11-24 14:54] LABS: C Reactive Protein* 1.4 mg/dL (0.5-1.0)
[2024-11-24 14:57] LABS: Slide Review Reflex Yes
--- OUTSIDE RECORDS SUMMARY | 2024-11-24 15:30 | XMS_ITS | Clinical Summary ---
Author Organization [facility] Address [address] [place] [id number] Care Team Providers Care Civil Celebrant Name Role Phone Pcp, No Primary Care [...] tablet by mouth once daily. 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 Gender Identity Not on file Sexual Orientation Not on file Obstetrics History Last Filed Vital Signs Vital Sign Reading Time Taken Comments Blood Pressure 141/81 09/02/2018 10:06 AM ENGINEERING RECRUITER Pulse 82 09/02/2018 10:06 AM ENGINEERING RECRUITER Temperature - - Respiratory Rate - - Oxygen Saturation 97% 09/02/2018 10: 06 AM ENGINEERING RECRUITER Inhaled Oxygen Concentration - - Weight 95.6 kg (210 lb 12.8 oz) 019 10:06 AM ENGINEERING RECRUITER Height - - Body Mass Index - [...] season) Influenza Vaccine (Season Ended) 2025 Insurance [employer] [facility] [place] ONLY Care Teams Civil Celebrant Relationship Specialty Start Date End Date Pcp, No . PCP - General 09/01/18
[2024-11-24 15:42] LABS: Slide Review Acceptable Review (Acceptable)
[2024-11-24 15:44] LABS: PCR FLU A Negative PCR FLU A (Negative); PCR FLU B Negative PCR FLU B (Negative); SARS PCR* Negative SARS-CoV-2 (Negative)
[2024-11-24 16:27] LABS: Appearance Urine Clear (Clear); Bilirubin Urine Negative (Negative); Blood Urine Negative (Negative); Color Urine Yellow (Yellow); Glucose Urine Negative (Negative); Ketones Urine Negative (Negative); Leukocyte Esterase Urine Trace (Negative); Nitrite Urine Negative (Negative); Protein Urine Negative (Negative); Specific Gravity Urine <= 1.005 (1.000-1.030); Urobilinogen Urine 0.2 (0.2-1.0)
[2024-11-24] MEDS: HYOSCYAMINE SULFATE 0.125 MG TAB 0.25 MG SUBLINGUAL (16:45)
[2024-11-24 16:54] LABS: RBC Urine 0-2 (0-2)
== END 2024-11-24 17:41 | disposition home or self-care (01) ==
PROVIDERS: Emergency Provider Family Medicine; PCP Internal Medicine
DX: K52.9 Noninfective gastroenteritis and colitis, unspecified (principal); R10.9 Unspecified abdominal pain; N83.8 Other noninflammatory disorders of ovary, fallopian tube and broad ligament
CPT/HCPCS: 36415; 74177; 80048; 81001; 83605; 85025; 86140; 87086; 87631; 96374; 96375; 99284; 99285; A9270; J1885; J2270; J2405; J7030; Q9967

== ENCOUNTER 2025-01-24 09:06 | Outpatient (CLI) | payer MEDICARE, OTHER, SELFPAY ==
--- NOTE | 2025-01-24 09:15 | CRLHL7_ITS ---
For Patients: As a result of the Century Cures Act, medical imaging exams and procedure reports are released immediately into your electronic medical record. You may view this report before your referring provider. If you have questions, please contact your health care provider. INDICATION: History of oophorectomy COMPARISON: None. TECHNIQUE: 2D harrison-scale and color Doppler images were acquired of the pelvis using a transabdominal and transvaginal approach. Transvaginal imaging performed to better visualize the pelvic anatomy. FINDINGS: Postoperative changes of hysterectomy and bilateral salpingo-oophorectomy. There are no suspicious fluid collections within the cul-de-sac. IMPRESSION: No suspicious findings status post NAGI/BSO. Dictated by Davi Dupree MD @ 01/24/2025 11:27:35 AM (Electronically Signed)
--- NOTE | 2025-01-24 10:15 | CRLHL7_ITS ---
For Patients: As a result of the Century Cures Act, medical imaging exams and procedure reports are released immediately into your electronic medical record. You may view this report before your referring provider. If you have questions, please contact your health care provider. INDICATION: BILATERAL SCREENING MAMMOGRAM, ASYMPTOMATIC 79 Y/O FEMALE COMPARISON: 01/22/2024, 01/20/2023, 01/17/2022 TECHNIQUE: Digital mammogram in CC and MLO projections including computer-aided detection (CAD) and tomosynthesis. BREAST COMPOSITION: The breasts are almost entirely fatty. FINDINGS: No suspicious findings. ASSESSMENT: BI-RADS 2 Benign RECOMMENDATION: Annual screening mammogram. A lay language report of this examination will be provided to the patient. Dictated by: Davi Dupree MD @ 01/24/2025 11:19:46 (Electronically Signed)
--- OUTSIDE RECORDS SUMMARY | 2025-01-25 02:25 | XMS_ITS | Clinical Summary ---
Author Organization [facility] Address [address] [place] [id number] Care Team Providers Care Vocational Technical Education Director Name Role Phone Pcp, No Primary Care [...] tablet by mouth once daily. 01/01/2016 Active xjdri-9-eak-epa -dpa-fish oil (FISH OIL) 1,050-1,200 mg cap [...] on file Legal Sex Female 4:58 PM KNITTER WIRE MESH Gender Identity Not on file Sexual Orientation Not on file Obstetrics History Last Filed Vital Signs Vital Sign Reading Time Taken Comments Blood Pressure 141/81 09/02/2018 10:06 AM KNITTER WIRE MESH Pulse 82 09/02/2018 10:06 AM KNITTER WIRE MESH Temperature - - Respiratory Rate - - Oxygen Saturation 97% 09/02/2018 10: 06 AM KNITTER WIRE MESH Inhaled Oxygen Concentration - - Weight 95.6 kg (210 lb 12.8 oz) 019 10:06 AM KNITTER WIRE MESH Height - - Body Mass Index - - Plan of Treatment Health Maintenance Due Date Last Done Comments Tdap 1958 Depression screening for age 12+ 1959 BMI (ht and wt on same day) for age 18+ 1965 Hepatitis C screening for ag e 18-79 1965 Tetanus booster 1967 Pneumococcal series for age 50+ (1 of 1 - PCV) 1997 Zoster (shingles) series for age 50+ (1 of 2) 1997 DEXA/DXA scan for age 65+ 2012 Medicare Wellness for age 65+ 2012 RSV vaccine for adults or (1 - 1-dose 75+ series) 2022 COVID-19 vaccine series ( - 2023-25 season) 2024 Influenza Vaccine (Season Ended) 2025 Hepatitis B series for 19+ Aged Out N o longer eligible based on patient's age to complete this topic Insurance [place] ONLY Care Teams Vocational Technical Education Director Relationship Specialty Start Date End Date Pcp, No . PCP - General 09/01/18
== END 2025-01-24 09:07 | disposition home or self-care (01) ==
LOC: US 09:07
PROVIDERS: PCP Internal Medicine; Visit Provider Internal Medicine
DX: Z12.31 Encounter for screening mammogram for malignant neoplasm of breast (principal); N94.9 Unspecified condition associated with female genital organs and menstrual cycle
CPT/HCPCS: 76830; 76856; 77063; 77067

== ENCOUNTER 2025-07-04 10:01 | Outpatient (CLI) | payer MEDICARE, OTHER, SELFPAY | END 2025-07-04 10:02 | disposition home or self-care (01) | LOC: NFLDREF 07-12 17:21 | PROVIDERS: PCP Internal Medicine; Referring Provider Internal Medicine; Visit Provider Internal Medicine | DX: E11.319 Type 2 diabetes mellitus with unspecified diabetic retinopathy without macular edema (principal) | CPT/HCPCS: 80053; 80061; 82043; 82570 ==